=== PATIENT | female | born 1995 | race Caucasian/White ===

== ENCOUNTER 2020-06-12 14:27 | Emergency (ER) | payer OTHER ==
[2020-06-12] MEDS ORDERED: Zofran 4 MG/2 ML VIAL IV ONE (14:49)
[2020-06-12] MEDS ORDERED: Sodium Chloride 0.9% 1000 ML 1,000 ML IV STA (14:49)
[2020-06-12] MEDS ORDERED: TYLENOL 325 MG PO ONE (14:49)
[2020-06-12] MEDS ORDERED: Sodium Chloride 0.9% 1000 ML 1,000 ML ONE (14:54)
[2020-06-12] MEDS ORDERED: TYLENOL 325 MG ONE (14:54)
[2020-06-12] MEDS ORDERED: Zofran 4 MG/2 ML VIAL ONE (14:54)
--- NOTE | 2020-06-12 15:04 | ERPHSYRPT ---
- History of Present Illness Time Seen by Provider: 06/12/20 14:42 Source: patient Exam Limitations: no limitations Patient Subjective Stated Complaint: pt co abd cramping since 1000 this am, she also feels she is dehydrated she staes she has been vomiting this shole pregn che, she is 12 weeks , G7 P 2 Triage Nursing Assessment: pt alert, walked in, resp easy, skin w/d/p, abd soft, no vagfinal bleeding, face mask in place, Physician History: 24 years old 7 para 2 at 12 weeks gestation presented in the ER with sudden onset pelvic cramping around 10 AM today, moderate intensity, continuous, gradually getting better on presentation. Denies any vaginal bleeding or discharge. Patient reports having issues with nausea vomiting since the start of this which did get improved almost a week ago but her vomiting is coming back again and feels dehydrated as she is not able to hold anything down since yesterday. Denies any fever chills or urinary symptoms. Timing/Duration: today, sudden Activites at Onset: rest Quality: cramping Onset Location: pelvic pain Pain Radiation: none Severity of Pain-Max: moderate Severity of Pain-Current: mild Sexual intercourse history: non-contributory Modifying Factors: Improves With: nothing Associated Symptoms: nausea, vomiting, , No urinary frequency Allergies/Adverse Reactions: No Known Drug Allergies Allergy (Unverified 06/18/13 20:11) Home Medications: Levothyroxine Sodium [Levothyroxine] 1 ea DAILY 06/12/20 [History] Hx Tetanus, Diphtheria Vaccination/Date Given: ([place]) Hx Influenza Vaccination/Date Given: No Hx Pneumococcal Vaccination/Date Given: No Travel Risk - International Travel Have you traveled outside of the country in past 3 weeks: No - Coronavirus Screening Are you exhibiting any of the following symptoms?: No Close contact with a COVID-19 positive Pt in past 14-21 Days: No - Vaccine Status Have you recieved a Covid-19 vaccination: No - Review of Systems Constitutional: Fatigue Eyes: No Symptoms Ears, Nose, & Throat: No Symptoms Respiratory: No Symptoms Cardiac: No Symptoms Abdominal/Gastrointestinal: Nausea, Vomiting Genitourinary Symptoms: Musculoskeletal: No Symptoms Skin: No Symptoms Neurological: No Symptoms Psychological: No Symptoms Endocrine: No Symptoms Hematologic/Lymphatic: No Symptoms Immunological/Allergic: No Symptoms - Past Medical History Pertinent Past Medical History: Yes Neurological History: No Pertinent History ENT History: No Pertinent History Cardiac History: No Pertinent History Respiratory History: No Pertinent History Endocrine Medical History: No Pertinent History Musculoskeletal History: No Pertinent History GI Medical History: No Pertinent History History: No Pertinent History Psycho-Social History: No Pertinent History Female Reproductive Disorders: No Pertinent History Other Medical History: cyst left ovary - Past Surgical History Past Surgical History: Yes Neuro Surgical History: No Pertinent History Cardiac: No Pertinent History Respiratory: No Pertinent History Gastrointestinal: No Pertinent History Genitourinary: No Pertinent History Musculoskeletal: Orthopedic Surgery Female Surgical History: No Pertinent History Other Surgical History: right wrist - Social History Smoking Status: Never smoker Exposure to second hand smoke: No Drug Use: none Patient Lives Alone: No - Female History Hx Last Menstrual Period: mar 16 Hx Now: Yes Expected Date of Delivery: 12/27/20 - Nursing Vital Signs Nursing Vital Signs: Initial Vital Signs Temperature 98.3 F 06/12/20 14:32 Pulse Rate 101 H 06/12/20 14:32 Respiratory Rate 18 06/12/20 14:32 Blood Pressure 116/70 06/12/20 14:32 O2 Sat by Pulse Oximetry 100 06/12/20 14:32 Pain Scale Pain Intensity 4 - Physical Exam General Appearance: no apparent distress Eye Exam: eyes nml inspection Ears, Nose, Throat Exam: normal ENT inspection, pharynx normal Neck Exam: normal inspection, supple, full range of motion Respiratory Exam: normal breath sounds, lungs clear Cardiovascular Exam: regular rate/rhythm, normal heart sounds Gastrointestinal/Abdomen Exam: soft, normal bowel sounds, No tenderness, No guarding Back Exam: normal inspection, normal range of motion Extremity Exam: normal inspection, normal range of motion, pelvis stable Neurologic Exam: alert, oriented x 3, cooperative Skin Exam: normal color SpO2 Interpretation: normal SpO2: 100 O2 Delivery: Room Air Ordered Tests: Active Orders 24 hr Category Date Time Status IV Insertion STAT Care 06/12/20 14:42 Active OB <14 WKS 1ST GESTATION [US] Stat Exams 06/12/20 16:11 Ordered CBC W DIFF Stat Lab 06/12/20 15:10 Completed CMP Stat Lab 06/12/20 15:10 Completed UA W/RFX UR CULTURE Stat Lab 06/12/20 16:26 Completed Medication Summary Discontinued Medications Generic Name Dose Route Start Last Admin Trade Name Freq PRN Reason Stop Dose Admin Acetaminophen 975 mg 06/12/20 14:49 06/12/20 14:58 Tylenol 325 Mg PO 06/12/20 14:50 975 mg STAT ONE Administration Acetaminophen Confirm 06/12/20 14:54 Tylenol 325 Mg Administered 06/12/20 14:55 Dose 975 mg .ROUTE .STK-MED ONE Sodium Chloride 1,000 mls @ 999 mls/hr 06/12/20 14:49 06/12/20 15:58 Sodium Chloride 0.9% 1000 Ml IV 06/12/20 15:49 Infused .Q1H1M STA Infusion Sodium Chloride Confirm 06/12/20 14:54 Sodium Chloride 0.9% 1000 Ml Administered 06/12/20 14:55 Dose 1,000 mls @ ud .ROUTE .STK-MED ONE Ceftriaxone Sodium/Dextrose 1 g in 50 mls @ 100 mls/hr 06/12/20 16:41 06/12/20 16:59 Rocephin 1 Gm-D5w 50 Ml Bag IV 06/12/20 17:10 100 mls/hr STAT STA 100 mls/hr Administration Ceftriaxone Sodium/Dextrose Confirm 06/12/20 16:45 Rocephin 1 Gm-D5w 50 Ml Bag Administered 06/12/20 16:46 Dose 1 g in 50 mls @ ud IV .STK-MED ONE Ondansetron HCl 4 mg 06/12/20 14:49 06/12/20 14:58 Zofran 4 Mg/2 Ml Vial IV 06/12/20 14:50 4 mg STAT ONE Administration Ondansetron HCl Confirm 06/12/20 14:54 Zofran 4 Mg/2 Ml Vial Administered 06/12/20 14:55 Dose 4 mg .ROUTE .STK-MED ONE Lab/Rad Data: Laboratory Result Diagrams 06/12/20 15:10 06/12/20 15:10 Laboratory Results 06/12/20 06/12/20 06/12/20 Range/Units 16:26 15:10 15:10 WBC (4.0-10.5) K/mm3 RBC (4.1-5.4) M/mm3 Hgb (12.0-16.0) gm/dl Hct (35-47) % MCV (78-100) fl MCH (26-32) pg MCHC (32-36) g/dl RDW (11.5-14.0) % Plt Count (150-450) K/mm3 MPV (7.5-11.0) fl Gran % (36.0-66.0) % Eos # (Auto) (0-0.5) Absolute Lymphs (auto) (1.0-4.6) Absolute Monos (auto) (0.0-1.3) Lymphocytes % (24.0-44.0) % Monocytes % (0.0-12.0) % Eosinophils % (0.00-5.0) % Basophils % (0.0-0.4) % Absolute Granulocytes (1.4-6.9) Basophils # (0-0.4) Sodium 135 L (137-145) mmol/L Potassium 3.9 (3.5-5.1) mmol/L Chloride 102 (98-107) mmol/L Carbon Dioxide 23 (22-30) mmol/L Anion Gap 14.1 (5-15) MEQ/L BUN 8 (7-17) mg/dL Creatinine 0.71 (0.52-1.04) mg/dL Estimated GFR > 60.0 ML/MIN Glucose 87 (74-106) mg/dL Calcium 8.4 (8.4-10.2) mg/dL Total Bilirubin 0.40 (0.2-1.3) mg/dL AST 25 (14-36) U/L ALT 16 (0-35) U/L Alkaline Phosphatase 67 (38-126) U/L Serum Total Protein 7.3 (6.3-8.2) g/dL Albumin 4.2 (3.5-5.0) g/dL Urine Color YELLOW (YELLOW) Urine Appearance SLIGHTLY CLOUDY (CLEAR) Urine pH 6.0 (5-6) Ur Specific Max 1.032 (1.005-1.025) Urine Protein 30 (Negative) Urine Ketones MODERATE (NEGATIVE) Urine Blood NEGATIVE (0-5) Lyndon/ul Urine Nitrite NEGATIVE (NEGATIVE) Urine Bilirubin NEGATIVE (NEGATIVE) Urine Urobilinogen 2 (0-1) mg/dL Ur Leukocyte Esterase NEGATIVE (NEGATIVE) Urine WBC (Auto) NONE (0-5) /HPF Urine RBC (Auto) NONE (0-2) /HPF U Epithel Cells (Auto) NONE (FEW) /HPF Urine Bacteria (Auto) NONE (NEGATIVE) /HPF Urine Mucus (Auto) SLIGHT (NEGATIVE) /HPF Urine Culture Reflexed NO (NO) Urine Glucose NEGATIVE (NEGATIVE) mg/dL Slides for Path Review ABO Group O Rh Factor POSITIVE Antibody Screen NEGATIVE (NEGATIVE) 06/12/20 Range/Units 15:10 WBC 7.3 (4.0-10.5) K/mm3 RBC 4.59 (4.1-5.4) M/mm3 Hgb 13.9 (12.0-16.0) gm/dl Hct 42.3 (35-47) % MCV 92.2 (78-100) fl MCH 30.3 (26-32) pg MCHC 32.9 (32-36) g/dl RDW 13.1 (11.5-14.0) % Plt Count 224 (150-450) K/mm3 MPV 11.0 (7.5-11.0) fl Gran % 86.8 H (36.0-66.0) % Eos # (Auto) 0.06 (0-0.5) Absolute Lymphs (auto) 0.35 L (1.0-4.6) Absolute Monos (auto) 0.55 (0.0-1.3) Lymphocytes % 4.8 L (24.0-44.0) % Monocytes % 7.5 (0.0-12.0) % Eosinophils % 0.8 (0.00-5.0) % Basophils % 0.1 (0.0-0.4) % Absolute Granulocytes 6.32 (1.4-6.9) Basophils # 0.01 (0-0.4) Sodium (137-145) mmol/L Potassium (3.5-5.1) mmol/L Chloride (98-107) mmol/L Carbon Dioxide (22-30) mmol/L Anion Gap (5-15) MEQ/L BUN (7-17) mg/dL Creatinine (0.52-1.04) mg/dL Estimated GFR ML/MIN Glucose (74-106) mg/dL Calcium (8.4-10.2) mg/dL Total Bilirubin (0.2-1.3) mg/dL AST (14-36) U/L ALT (0-35) U/L Alkaline Phosphatase (38-126) U/L Serum Total Protein (6.3-8.2) g/dL Albumin (3.5-5.0) g/dL Urine Color (YELLOW) Urine Appearance (CLEAR) Urine pH (5-6) Ur Specific Max (1.005-1.025) Urine Protein (Negative) Urine Ketones (NEGATIVE) Urine Blood (0-5) Lyndon/ul Urine Nitrite (NEGATIVE) Urine Bilirubin (NEGATIVE) Urine Urobilinogen (0-1) mg/dL Ur Leukocyte Esterase (NEGATIVE) Urine WBC (Auto) (0-5) /HPF Urine RBC (Auto) (0-2) /HPF U Epithel Cells (Auto) (FEW) /HPF Urine Bacteria (Auto) (NEGATIVE) /HPF Urine Mucus (Auto) (NEGATIVE) /HPF Urine Culture Reflexed (NO) Urine Glucose (NEGATIVE) mg/dL Slides for Path Review YES ABO Group Rh Factor Antibody Screen (NEGATIVE) - Progress Progress: improved Air Movement: good Progress Note: 06/12/20 15:03 24 years old is evaluated for pelvic cramping and vomiting feeling dehydrated. She is given fluid bolus and Zofran along with Tylenol. Discussed with Dr. Zaidi, recommended hydration with symptomatic treatment and baseline lab work. 06/12/20 17:38 She is feeling better on reevaluation. Baseline work-up is unremarkable. Per OB recommendation given a dose of Rocephin. Ultrasound showed heart tones in 170s and no other acute findings per preliminary report. Official report is pending. Patient would follow-up with OB tomorrow. I think patient needs any further work-up and is stable for discharge. Blood Culture(s) Obtained: No Antibiotics given: No Discussed with DrToñito: Demetria Counseled pt/family regarding: lab results, diagnosis, need for follow-up, rad results - Departure Departure Disposition: Home Clinical Impression: Pelvic cramping in antepartum period Condition: Stable Critical Care Time: No Referrals: MASTER PANTOJA, CESAR [Primary Care Provider] - CONCHITA ZAIDI DO [ACTIVE STAFF] - (tomorrow for re evaluation) Instructions: Stomach Pain in Early Additional Instructions: take tylenol as needed. drink plenty of fluids. follow up with ELEANOR for re evaluation tomorrow. return to ER for worsening cramping or if develop vaginal bleeding etc. pelvic rest
[2020-06-12 15:20] LABS: Absolute Neutrophil Ct (ANC) 6.32 (1.4-6.9); BASOPHIL % 0.1 % (0.0-0.4); Basophil (Absolute #) 0.01 (0-0.4); Eosinophil % 0.8 % (0.00-5.0); Eosinophil (Absolute #) 0.06 (0-0.5); Hematocrit 42.3 % (35-47); Hemoglobin 13.9 gm/dl (12.0-16.0); Lymphocyte (Absolute #) 0.35 (1.0-4.6); Lymphocytes % 4.8 % (24.0-44.0); Mean Cell Volume 92.2 fl (78-100); Mean Corpuscular Hemoglobin 30.3 pg (26-32); Mean Corpuscular Hgb Concent. 32.9 g/dl (32-36); Monocyte (Absolute #) 0.55 (0.0-1.3); Monocytes % 7.5 % (0.0-12.0); Neutrophil % 86.8 % (36.0-66.0); Platelet Count 224 K/mm3 (150-450); Red Blood Count 4.59 M/mm3 (4.1-5.4); Red Cell Distribution Width 13.1 % (11.5-14.0); White Blood Count 7.3 K/mm3 (4.0-10.5)
[2020-06-12 15:30] LABS: ALBUMIN 4.2 g/dL (3.5-5.0); ALKALINE PHOSPHATASE 67 U/L (38-126); ANION GAP 14.1 MEQ/L (5-15); BLOOD UREA NITROGEN 8 mg/dL (7-17); CHLORIDE 102 mmol/L (98-107); Calcium 8.4 mg/dL (8.4-10.2); Carbon Dioxide 23 mmol/L (22-30); Creatinine 1 0.71 mg/dL (0.52-1.04); EST GLOMERULAR FILTRATION RATE > 60.0 ML/MIN; Glucose 87 mg/dL (74-106); Potassium 3.9 mmol/L (3.5-5.1); SGOT/AST 25 U/L (14-36); SGPT/ALT 16 U/L (0-35); SODIUM 135 mmol/L (137-145); Total Protein 7.3 g/dL (6.3-8.2)
[2020-06-12 15:58] LABS: ABO TYPING O; Antibody Screen NEGATIVE (NEGATIVE); RH TYPING POSITIVE
[2020-06-12 16:04] LABS: Slide Review 1 YES
[2020-06-12 16:33] LABS: Appearance SLIGHTLY CLOUDY (CLEAR); Bilirubin NEGATIVE (NEGATIVE); Blood NEGATIVE Ery/ul (0-5); Glucose NEGATIVE (NEGATIVE); Ketones MODERATE (NEGATIVE); Leukocyte Esterase NEGATIVE (NEGATIVE); Mucus SLIGHT /HPF (NEGATIVE); Nitrite NEGATIVE (NEGATIVE); Protein,Urine Dip 30 (Negative); Specific Gravity 1.032 (1.005-1.025); Urobilinogen 2 mg/dL (0-1)
[2020-06-12] MEDS ORDERED: ROCEPHIN 1 Gm-D5w 50 ml Bag** 1 G/50 ML IVPB IV STA (16:41)
[2020-06-12] MEDS ORDERED: ROCEPHIN 1 Gm-D5w 50 ml Bag** 1 G/50 ML IVPB IV ONE (16:45)
[2020-06-12 17:36] VITALS: BP 102/62; PULSE 92
[2020-06-12 17:40] VITALS: O2SAT 100
--- NOTE | 2020-06-13 08:44 | XRAY ---
Indication: Pelvic cramping. Limited transabdominal early OB ultrasound performed. Comparison: None for this . There is a single intrauterine with heart rate 171 BPM and no abnormal subchorionic fluid. Left ovary measures 1.9 x 3.3 x 2.5 cm. Right ovary not seen. No suspicious adnexal mass or free fluid. Comment: Preliminary report was given.
== END 2020-06-12 17:39 | disposition home or self-care (01) ==
LOC: ED 14:27
DX: R10.2 Pelvic and perineal pain (principal); Z3A.12 12 weeks gestation of pregnancy; R11.2 Nausea with vomiting, unspecified
CPT/HCPCS: 36000; 36415; 76801; 80053; 81001; 85025; 86850; 86900; 86901; 96360; 96365; 96374; 99284; J0696; J2405; A9270-GY

== ENCOUNTER 2020-12-30 13:23 | Emergency (ER) | payer BC, OTHER ==
[2020-12-30] MEDS ORDERED: SUBLIMAZE 100 MCG/2 ML IV ONE (13:35)
[2020-12-30] MEDS ORDERED: Zofran 4 MG/2 ML VIAL IV ONE (13:36)
[2020-12-30] MEDS ORDERED: Zofran 4 MG/2 ML VIAL ONE (13:44)
[2020-12-30] MEDS ORDERED: SUBLIMAZE 100 MCG/2 ML ONE (13:44)
[2020-12-30 14:04] LABS: Absolute Neutrophil Ct (ANC) 4.18 (1.4-6.9); BASOPHIL % 0.7 % (0.0-0.4); Basophil (Absolute #) 0.05 (0-0.4); Eosinophil % 1.6 % (0.00-5.0); Eosinophil (Absolute #) 0.11 (0-0.5); Hematocrit 41.2 % (35-47); Hemoglobin 12.4 gm/dl (12.0-16.0); Lymphocyte (Absolute #) 1.79 (1.0-4.6); Lymphocytes % 25.6 % (24.0-44.0); Mean Cell Volume 87.5 fl (78-100); Mean Corpuscular Hemoglobin 26.3 pg (26-32); Mean Corpuscular Hgb Concent. 30.1 g/dl (32-36); Mean Platelet Volume 10.5 fl (7.5-11.0); Monocyte (Absolute #) 0.85 (0.0-1.3); Monocytes % 12.2 % (0.0-12.0); Neutrophil % 59.9 % (36.0-66.0); Platelet Count 406 K/mm3 (150-450); Red Blood Count 4.71 M/mm3 (4.1-5.4); Red Cell Distribution Width 15.1 % (11.5-14.0)
--- NOTE | 2020-12-30 14:04 | ERPHSYRPT ---
- History of Present Illness Historian: patient, EMS Exam Limitations: no limitations Patient Subjective Stated Complaint: pt here for pain under left breast and up neck since last night with some sob, pt had covid and pnuemonia, she is post 3 weeks, normal vaginal delivery, breast feeding Triage Nursing Assessment: pt alert, resp easy, sob with movement, skin w/d/p. face mask in place, abd soft, no edema noted Physician History: 25 yo wf s/p term vag delivery 3 wks ago complicated by Covid19 presents w L anterior-inferior chest pain x 12hrs. Pt states that pain is a 10 and worse w deep breaths. She denies nausea/vomiting/cough/fever. Pt is currently breast feeding and denies injury. Timing/Duration: yesterday (Last night) Activities at Onset: rest Quality: sharpness Location: other (L anterior-inferior thorax) Chest Pain Radiation: back (Pain radiates to back) Severity of Pain-Max: severe Severity of Pain-Current: severe Modifying Factors: Improves With: breathing, coughing Associated Symptoms: hurts to breathe, back pain, No nausea, No vomiting, No palpitations, No heartburn, No abdominal pain, No shortness of breath, No cough, No diaphoresis, No chills, No fever, No fatigue, No weakness, No swelling/lump in chest, No syncope, No rash, No headache, No dizziness, No edema Prior Chest Pain/Cardiac Workup: no prior chest pain Nitro Today/Relief: no nitro taken today Aspirin Treatment Today: no aspirin today Allergies/Adverse Reactions: No Known Drug Allergies Allergy (Unverified 12/30/20 14:18) Home Medications: Levothyroxine Sodium [Levothyroxine] 1 ea DAILY 06/12/20 [History] Vits W-Ca,Fe,FA(<1Mg) [] 1 ea DAILY 12/30/20 [History] Hx Influenza Vaccination/Date Given: No Hx Pneumococcal Vaccination/Date Given: No Immunizations Up to Date: Yes Travel Risk - International Travel Have you traveled outside of the country in past 3 weeks: No - Coronavirus Screening Are you exhibiting any of the following symptoms?: No Close contact with a COVID-19 positive Pt in past 14-21 Days: No - Vaccine Status Have you recieved a Covid-19 vaccination: No - Review of Systems Constitutional: No Symptoms Eyes: No Symptoms Ears, Nose, & Throat: No Symptoms Respiratory: No Symptoms Cardiac: No Symptoms, Chest Pain Abdominal/Gastrointestinal: No Symptoms Genitourinary Symptoms: No Symptoms Musculoskeletal: No Symptoms Skin: No Symptoms Neurological: No Symptoms Psychological: No Symptoms Endocrine: No Symptoms Hematologic/Lymphatic: No Symptoms Immunological/Allergic: No Symptoms - Past Medical History Pertinent Past Medical History: Yes Respiratory History: Asthma Other Medical History: covid 3 end nov 2020,vaginal delivery nov 2020 - Past Surgical History Past Surgical History: No - Social History Smoking Status: Never smoker Exposure to second hand smoke: No Drug Use: none Patient Lives Alone: No Significant Family History: no pertinent family hx - Female History Hx Last Menstrual Period: apr 2020 Hx Now: No - Nursing Vital Signs Nursing Vital Signs: Initial Vital Signs Temperature 97.2 F 12/30/20 13:31 Pulse Rate 88 12/30/20 13:31 Blood Pressure 130/82 12/30/20 13:31 O2 Sat by Pulse Oximetry 99 12/30/20 13:31 Pain Scale Pain Intensity 3 WNL - Physical Exam General Appearance: no apparent distress (In pain) Eye Exam: PERRL/EOMI, eyes nml inspection Ears, Nose, Throat Exam: normal ENT inspection, TMs normal, pharynx normal, moist mucous membranes Neck Exam: normal inspection, non-tender, supple, full range of motion Respiratory Exam: normal breath sounds, lungs clear, airway intact, No chest tenderness, No respiratory distress Cardiovascular Exam: regular rate/rhythm, normal heart sounds, normal peripheral pulses, No murmur Gastrointestinal/Abdomen Exam: soft, normal bowel sounds, No tenderness Back Exam: normal inspection, normal range of motion, No CVA tenderness Extremity Exam: normal inspection, normal range of motion Neurologic Exam: alert, oriented x 3, cooperative, automotive technology instructor II-XII nml as tested, normal mood/affect, nml station & gait, sensation nml, No motor deficits, No sensory deficit Skin Exam: normal color, warm, dry Lymphatic Exam: No adenopathy SpO2 Interpretation: normal SpO2: 99 O2 Delivery: Room Air - Course Nursing assessment & vital signs reviewed: Yes - CT Exams Chest CT Interpretation: Discussed w/radiologist (CT chest no PE/Diffuse groundglass airspace dz) Abdomen/Pelvis CT Interpretation: Discussed w/radiologist (Nothing acute) Ordered Tests: Active Orders 24 hr Category Date Time Status EKG-ER Only STAT Care 12/30/20 14:13 Completed IV Insertion STAT Care 12/30/20 13:32 Completed ABDOMEN AND PELVIS W CONTRAST [CT] Stat Exams 12/30/20 14:37 Completed CHEST WITH CONTRAST [CT] Stat Exams 12/30/20 14:37 Completed AMYLASE Stat Lab 12/30/20 13:50 Completed CBC W DIFF Stat Lab 12/30/20 13:50 Completed CMP Stat Lab 12/30/20 13:50 Completed CULTURE,URINE Stat Lab 12/30/20 13:43 Received LIPASE Stat Lab 12/30/20 13:50 Completed PROTIME WITH INR Stat Lab 12/30/20 13:50 Completed PTT Stat Lab 12/30/20 13:50 Completed TROPONIN Q3H Lab 12/30/20 13:50 Completed UA W/RFX UR CULTURE Stat Lab 12/30/20 13:43 Completed Urine Triage Profile Stat Lab 12/30/20 13:43 Completed Medication Summary Discontinued Medications Generic Name Dose Route Start Last Admin Trade Name Asa PRN Reason Stop Dose Admin Fentanyl Citrate 100 mcg 12/30/20 13:35 12/30/20 13:47 Fentanyl Citrate 100 Mcg/2 Ml* Vial IV 12/30/20 13:36 100 mcg STAT ONE Administration Fentanyl Citrate Confirm 12/30/20 13:44 Fentanyl Citrate 100 Mcg/2 Ml* Vial Administered 12/30/20 13:45 Dose 100 mcg .ROUTE .STK-MED ONE Ondansetron HCl 4 mg 12/30/20 13:36 12/30/20 13:47 Ondansetron Hcl 4 Mg/2 Ml Vial IV 12/30/20 13:37 4 mg STAT ONE Administration Ondansetron HCl Confirm 12/30/20 13:44 Ondansetron Hcl 4 Mg/2 Ml Vial Administered 12/30/20 13:45 Dose 4 mg .ROUTE .STK-MED ONE Lab/Rad Data: Laboratory Result Diagrams 12/30/20 13:50 12/30/20 13:50 Laboratory Results 12/30/20 12/30/20 12/30/20 Range/Units 13:50 13:50 13:50 WBC (4.0-10.5) K/mm3 RBC (4.1-5.4) M/mm3 Hgb (12.0-16.0) gm/dl Hct (35-47) % MCV (78-100) fl MCH (26-32) pg MCHC (32-36) g/dl RDW (11.5-14.0) % Plt Count (150-450) K/mm3 MPV (7.5-11.0) fl Gran % (36.0-66.0) % Eos # (Auto) (0-0.5) Absolute Lymphs (auto) (1.0-4.6) Absolute Monos (auto) (0.0-1.3) Lymphocytes % (24.0-44.0) % Monocytes % (0.0-12.0) % Eosinophils % (0.00-5.0) % Basophils % (0.0-0.4) % Absolute Granulocytes (1.4-6.9) Basophils # (0-0.4) PT 12.6 H (9.4-12.5) SECONDS INR 1.07 (0.8-3.0) APTT 39.0 H (25.1-36.5) SECONDS Sodium 141 (137-145) mmol/L Potassium 4.4 (3.5-5.1) mmol/L Chloride 108 H (98-107) mmol/L Carbon Dioxide 23 (22-30) mmol/L Anion Gap 14.5 (5-15) MEQ/L BUN 10 (7-17) mg/dL Creatinine 0.86 (0.52-1.04) mg/dL Estimated GFR > 60.0 ML/MIN Glucose 93 (74-106) mg/dL Calcium 8.7 (8.4-10.2) mg/dL Total Bilirubin 0.50 (0.2-1.3) mg/dL AST 22 (14-36) U/L ALT 21 (0-35) U/L Alkaline Phosphatase 151 H (38-126) U/L Troponin I < 0.012 (0.000-0.034) ng/mL Serum Total Protein 6.8 (6.3-8.2) g/dL Albumin 4.2 (3.5-5.0) g/dL Amylase 49 (30-110) U/L Lipase 114 (23-300) U/L Urine Color (YELLOW) Urine Appearance (CLEAR) Urine pH (5-6) Ur Specific [place] (1.005-1.025) Urine Protein (Negative) Urine Ketones (NEGATIVE) Urine Blood (0-5) Lyndon/ul Urine Nitrite (NEGATIVE) Urine Bilirubin (NEGATIVE) Urine Urobilinogen (0-1) mg/dL Ur Leukocyte Esterase (NEGATIVE) Urine WBC (Auto) (0-5) /HPF Urine RBC (Auto) (0-2) /HPF U Epithel Cells (Auto) (FEW) /HPF Urine Bacteria (Auto) (NEGATIVE) /HPF Urine Mucus (Auto) (NEGATIVE) /HPF Urine Culture Reflexed (NO) Urine Glucose (NEGATIVE) mg/dL Urine Opiates Level (NEGATIVE) Ur Methadone (NEGATIVE) Urine Barbiturates (NEGATIVE) Ur Phencyclidine (PCP) (NEGATIVE) Urine Amphetamine (NEGATIVE) U Benzodiazepine Level (NEGATIVE) Urine Cocaine (NEGATIVE) Urine Marijuana (THC) (NEGATIVE) 12/30/20 12/30/20 12/30/20 Range/Units 13:50 13:43 13:43 WBC 7.0 (4.0-10.5) K/mm3 RBC 4.71 (4.1-5.4) M/mm3 Hgb 12.4 (12.0-16.0) gm/dl Hct 41.2 (35-47) % MCV 87.5 (78-100) fl MCH 26.3 (26-32) pg MCHC 30.1 L (32-36) g/dl RDW 15.1 H (11.5-14.0) % Plt Count 406 (150-450) K/mm3 MPV 10.5 (7.5-11.0) fl Gran % 59.9 (36.0-66.0) % Eos # (Auto) 0.11 (0-0.5) Absolute Lymphs (auto) 1.79 (1.0-4.6) Absolute Monos (auto) 0.85 (0.0-1.3) Lymphocytes % 25.6 (24.0-44.0) % Monocytes % 12.2 H (0.0-12.0) % Eosinophils % 1.6 (0.00-5.0) % Basophils % 0.7 (0.0-0.4) % Absolute Granulocytes 4.18 (1.4-6.9) Basophils # 0.05 (0-0.4) PT (9.4-12.5) SECONDS INR (0.8-3.0) APTT (25.1-36.5) SECONDS Sodium (137-145) mmol/L Potassium (3.5-5.1) mmol/L Chloride (98-107) mmol/L Carbon Dioxide (22-30) mmol/L Anion Gap (5-15) MEQ/L BUN (7-17) mg/dL Creatinine (0.52-1.04) mg/dL Estimated GFR ML/MIN Glucose (74-106) mg/dL Calcium (8.4-10.2) mg/dL Total Bilirubin (0.2-1.3) mg/dL AST (14-36) U/L ALT (0-35) U/L Alkaline Phosphatase (38-126) U/L Troponin I (0.000-0.034) ng/mL Serum Total Protein (6.3-8.2) g/dL Albumin (3.5-5.0) g/dL Amylase (30-110) U/L Lipase (23-300) U/L Urine Color YELLOW (YELLOW) Urine Appearance SLIGHTLY CLOUDY (CLEAR) Urine pH 6.0 (5-6) Ur Specific [place] 1.027 (1.005-1.025) Urine Protein NEGATIVE (Negative) Urine Ketones NEGATIVE (NEGATIVE) Urine Blood NEGATIVE (0-5) Lyndon/ul Urine Nitrite NEGATIVE (NEGATIVE) Urine Bilirubin NEGATIVE (NEGATIVE) Urine Urobilinogen NEGATIVE (0-1) mg/dL Ur Leukocyte Esterase MODERATE (NEGATIVE) Urine WBC (Auto) 6-10 (0-5) /HPF Urine RBC (Auto) 0-2 (0-2) /HPF U Epithel Cells (Auto) RARE (FEW) /HPF Urine Bacteria (Auto) FEW (NEGATIVE) /HPF Urine Mucus (Auto) SLIGHT (NEGATIVE) /HPF Urine Culture Reflexed YES (NO) Urine Glucose NEGATIVE (NEGATIVE) mg/dL Urine Opiates Level NEGATIVE (NEGATIVE) Ur Methadone NEGATIVE (NEGATIVE) Urine Barbiturates NEGATIVE (NEGATIVE) Ur Phencyclidine (PCP) NEGATIVE (NEGATIVE) Urine Amphetamine NEGATIVE (NEGATIVE) U Benzodiazepine Level NEGATIVE (NEGATIVE) Urine Cocaine NEGATIVE (NEGATIVE) Urine Marijuana (THC) NEGATIVE (NEGATIVE) - Progress Progress: improved Progress Note: 12/30/20 21:09 [id number] IV/4mg IV Zofran w marked relief in pain Pt refused pain meds before discharge Counseled pt/family regarding: lab results, diagnosis, need for follow-up, rad results - Departure Departure Disposition: Home Clinical Impression: UTI (urinary tract infection), Chest pain Condition: Stable Critical Care Time: No Referrals: MASTER PANTOJA NP [Primary Care Provider] - Instructions: Urinary Tract Infection, Adult (DC), Chest Pain (DC) Additional Instructions: Follow up with your family MD Return to ER for increasing pain, shortness of breath, or temperature greater than 100.5 Prescriptions: Nitrofurantoin Monohyd/M-Cryst [Macrobid 100 mg Capsule] 100 mg PO BID 5 Days #10
[2020-12-30 14:08] LABS: INR 1.07 (0.8-3.0); PROTIME 12.6 SECONDS (9.4-12.5)
[2020-12-30 14:12] LABS: Appearance SLIGHTLY CLOUDY (CLEAR); Bacteria FEW /HPF (NEGATIVE); Bilirubin NEGATIVE (NEGATIVE); Blood NEGATIVE Ery/ul (0-5); Epithelial Cells RARE /HPF (FEW); Glucose NEGATIVE (NEGATIVE); Ketones NEGATIVE (NEGATIVE); Leukocyte Esterase MODERATE (NEGATIVE); Mucus SLIGHT /HPF (NEGATIVE); Nitrite NEGATIVE (NEGATIVE); Protein,Urine Dip NEGATIVE (Negative); RBC 0-2 /HPF (0-2); Specific Gravity 1.027 (1.005-1.025); Urobilinogen NEGATIVE mg/dL (0-1)
[2020-12-30 14:16] LABS: ALBUMIN 4.2 g/dL (3.5-5.0); ALKALINE PHOSPHATASE 151 U/L (38-126); AMYLASE 49 U/L (30-110); ANION GAP 14.5 MEQ/L (5-15); BLOOD UREA NITROGEN 10 mg/dL (7-17); CHLORIDE 108 mmol/L (98-107); Calcium 8.7 mg/dL (8.4-10.2); Carbon Dioxide 23 mmol/L (22-30); Creatinine 1 0.86 mg/dL (0.52-1.04); EST GLOMERULAR FILTRATION RATE > 60.0 ML/MIN; Glucose 93 mg/dL (74-106); LIPASE 114 U/L (23-300); Potassium 4.4 mmol/L (3.5-5.1); SGOT/AST 22 U/L (14-36); SGPT/ALT 21 U/L (0-35); SODIUM 141 mmol/L (137-145); Total Protein 6.8 g/dL (6.3-8.2)
[2020-12-30 14:27] LABS: Amphetamine,Urine NEGATIVE (NEGATIVE); Barbiturate,Urine NEGATIVE (NEGATIVE); Benzodiazepine,Urine NEGATIVE (NEGATIVE); Cocaine,Urine NEGATIVE (NEGATIVE); Methadone,Urine NEGATIVE (NEGATIVE); Opiate,Urine NEGATIVE (NEGATIVE); PCP,Urine NEGATIVE (NEGATIVE); THC,Urine NEGATIVE (NEGATIVE)
--- NOTE | 2020-12-30 15:43 | XRAY ---
Indication: Left chest, left breast, left flank pain. Status post 3 weeks ago. Multiple contiguous images obtained through the chest using 100 cc Isovue 370 contrast and PE protocol. Comparison: None There is adequate opacification of the pulmonary arteries to include the lobar and segmental branches. No pulmonary embolus. Heart not enlarged. Aorta is normal in course and caliber. No pathologic mediastinal/hilar lymphadenopathy. Lungs demonstrates mild diffuse bilateral patchy groundglass airspace disease without consolidation or effusion. Bony thorax intact. CT abdomen/pelvis report septally. Impression: 1. Negative pulmonary embolus. 2. Diffuse bilateral patchy groundglass airspace disease. Commonly reported imaging features of Covid 19 pneumonia are present. Other processes such as influenza pneumonia and organizing pneumonia, as can be seen with drug toxicity and connective tissue disease, can cause a similar imaging pattern.
--- NOTE | 2020-12-30 15:47 | XRAY ---
Indication: Left chest, left breast, left flank pain. Status post 3 weeks ago. Multiple contiguous images obtained through the abdomen and pelvis using 100 cc Isovue 370 contrast. Comparison: None CT chest reported separately. Noncontrasted stomach and bowel loops appear nonobstructed. Appendix not seen. Mildly prominent uterus presumed from recent gravid status. No free fluid/air. Liver demonstrates 1.8 cm left lobe and 1 cm right lobe hemangiomas. Remaining liver, gallbladder, pancreas, spleen, adrenal glands, kidneys, ureters, bladder, uterus, and aorta are unremarkable. No pathologic retroperitoneal lymphadenopathy. Osseous structures intact. No ventral or inguinal hernias. Impression: 1. Hepatic hemangiomas. 2. Prominent uterus presumed from recent gravid status. 3. Remaining CT abdomen/pelvis with contrast exam is negative.
[2020-12-30 16:03] VITALS: BP 119/77; PULSE 80
[2020-12-30 16:05] VITALS: O2SAT 99
== END 2020-12-30 16:12 | disposition home or self-care (01) ==
LOC: MERGE 13:23 → ED 13:23
DX: O86.20 Urinary tract infection following delivery, unspecified (principal); N39.0 Urinary tract infection, site not specified; R07.9 Chest pain, unspecified
CPT/HCPCS: 36000; 36415; 71260; 74177; 80053; 80307; 81001; 82150; 83690; 84484; 85025; 85610; 85730; 87086; 93005; 96374; 96375; 99284; J2405; J3010

== ENCOUNTER 2021-12-19 07:59 | Day surgery (SDC) | payer BC, OTHER ==
[~2021-12-19 07:59] MED LIST: Lactated Ringers 1,000 ML IV ONE; Sensorcaine 0.25% 10 ML ONE
[2021-12-19] MEDS ORDERED: CEFAZOLIN 2 GM-D5W BAG** 2 GM/50 ML ML IV ONE (08:20)
[2021-12-19] MEDS ORDERED: CEFAZOLIN 2 GM-D5W BAG** 2 GM/50 ML ML IV SCH (08:30)
[2021-12-19] MEDS: Lactated Ringers 1,000 ML IV SCH ×2 (08:59→20:50)
[2021-12-19] MEDS ORDERED: BRIDION 200MG/2ML IV ONE (09:53)
[2021-12-19] MEDS ORDERED: DIPRIVAN 200 MG/20 ML IV ONE (09:53)
[2021-12-19] MEDS ORDERED: Zofran 4 MG/2 ML VIAL ONE (09:53)
[2021-12-19] MEDS ORDERED: Decadron 4 MG INJ ONE (09:53)
[2021-12-19] MEDS ORDERED: Xylocaine-Mpf 2% 5 Ml Vial ONE (09:53)
[2021-12-19] MEDS ORDERED: Zemuron 100 MG/10 ML ONE (09:53)
[2021-12-19] MEDS ORDERED: SUBLIMAZE 100 MCG/2 ML ONE ×2 (09:53→11:47)
[2021-12-19] MEDS ORDERED: TORAdol 30 mg Injection ONE ×2 (09:53→18:58)
[2021-12-19] MEDS ORDERED: Versed 2 MG/2 ML Injection ONE (10:19)
[2021-12-19] MEDS ORDERED: Lactated Ringers 1,000 ML IV ONE ×2 (11:00→13:45)
[2021-12-19] MEDS ORDERED: PHENYLEPHRINE HCL ONE (11:22)
[2021-12-19] MEDS ORDERED: MORPHINE SULFATE 2 MG INJ ONE (11:31)
[2021-12-19] MEDS ORDERED: Hydromorphone 1 mg/ml Injection ONE ×3 (12:13→14:45)
--- NOTE | 2021-12-19 13:36 | XRAY ---
Indication: Pain following surgery December 19, 2021. Two-dimensional transvaginal pelvic sonogram performed. Comparison: November 20, 2019 Uterus again anteverted measuring 6.5 x 3.1 x 4.3 cm. No focal solid/cystic uterine mass. Endometrial stripe measures 5.6 mm. No endometrial cavity mass or fluid collection. Right ovary measures 3.6 x 2.5 x 3.6 cm and the left measures 3.5 x 2.9 x 3.6 cm. Normal follicular cysts and perfusion bilaterally. Again tiny cul-de-sac fluid presumed physiologic from rupture/leaking cyst. No suspicious adnexal mass. Impression: Again tiny physiologic cul-de-sac fluid. Remaining transvaginal pelvic sonogram is again negative.
[2021-12-19 13:38] LABS: Absolute Neutrophil Ct (ANC) 11.66 x10^3/uL (1.4-6.9); Basophil (Absolute #) 0.05 x10^3/uL (0-0.4); Eosinophil % 0.4 % (0.00-5.0); Eosinophil (Absolute #) 0.05 x10^3/uL (0-0.5); Hematocrit 42.4 % (35-47); Hemoglobin 13.6 g/dL (12.0-16.0); Lymphocyte (Absolute #) 1.35 x10^3/uL (1.0-4.6); Lymphocytes % 10.1 % (24.0-44.0); Mean Cell Volume 90.8 fL (78-100); Mean Corpuscular Hemoglobin 29.1 pg (26-32); Mean Corpuscular Hgb Concent. 32.1 g/dL (32-36); Mean Platelet Volume 10.4 fL (7.5-11.0); Monocyte (Absolute #) 0.17 x10^3/uL (0.0-1.3); Monocytes % 1.3 % (0.0-12.0); Neutrophil % 87.4 % (36.0-66.0); Platelet Count 276 x10^3/uL (150-450); Red Blood Count 4.67 x10^6/uL (4.1-5.4); Red Cell Distribution Width 12.4 % (11.5-14.0); White Blood Count 13.3 x10^3/uL (4.0-10.5)
[2021-12-19] MEDS ORDERED: OFIRMEV IV ONE (14:02)
[2021-12-19] MEDS ORDERED: HYDROMORPHONE 30 MG/30 ML-NS IV PRN (14:08)
[2021-12-19] MEDS ORDERED: PHARMACY DOSING REQUEST MC ONE (14:15)
[2021-12-19] MEDS ORDERED: Narcan 0.4 MG/ML IV PRN (14:21)
[2021-12-19] MEDS ORDERED: Hydromorphone 1 mg/ml Injection IV ONE (14:45)
[2021-12-19] MEDS ORDERED: BENADRYL 50 MG/ML IV ONE (17:30)
[2021-12-19] MEDS ORDERED: Zofran 4 MG/2 ML VIAL IV PRN (17:30)
[2021-12-19] MEDS ORDERED: solu-MEDROL 40 MG, Sterile H2O 10 ml 1 ML IV STA ×2 (17:30)
[2021-12-19] MEDS ORDERED: TORAdol 30 mg Injection IV ONE (18:50)
[2021-12-19] MEDS ORDERED: BENADRYL 50 MG/ML IV PRN (19:22)
[2021-12-19 20:39] LABS: ABO TYPING O; Antibody Screen NEGATIVE (NEGATIVE); RH TYPING POSITIVE
[2021-12-19] MEDS: Hydromorphone 1 mg/ml Injection IV PRN (20:45)
[2021-12-20] MEDS: Hydromorphone 1 mg/ml Injection IV PRN ×3 (00:37→08:25)
[2021-12-20 06:46] VITALS: BP 125/71; PULSE 86; O2SAT 98
--- NOTE | 2021-12-20 07:50 | PCM.NOTE ---
Date and Time: 12/20/21 0745 Subjective Assessment: pt is sp laparoscopic tubal sterilization with removal of nexplanon, hysteroscopy d&c with attempted ablation doing much better today since having severe adominal pelvic pain yesterday and was admitted for pain management. pt underwent sonogram and ct abd pelvis and was normal. states tolerating diet and feeling well today, able to ambulate and tolerate diet. vss afebrile abd; soft incision c/d/intact ext; no clubbing cyanosis or edema wbc; 13 a/p sp laparoscopic tubal sterilization hysteroscopy d&c removal of nexplanon with resolving abdominal pelvic pain will dc home today should fu in office in 1 wk OBJECTIVE DATA Vital Signs: Vital Signs - 24 hr Temp Pulse Resp BP Pulse Ox 12/20/21 06:46 97.5 F 86 16 125/71 98 12/20/21 04:00 97.7 F 72 18 102/57 96 12/20/21 00:00 97.7 F 104 H 20 121/71 97 12/19/21 20:00 97.7 F 104 H 20 133/76 97 12/19/21 14:26 16 12/19/21 08:56 97.0 F 60 18 130/89 99 12/19/21 08:34 97.0 F 60 18 130/89 99 Pain Assessment - Last Documented Pain Intensity [Lower] 2 Pain Intensity 4 Pain Scale Used 0-10 Pain Scale Intake and Output: Intake & Output 12/17/21 12/18/21 12/19/21 12/20/21 11:59 11:59 11:59 11:59 Intake Total 0 983 Output Total 200 Balance -200 983 Weight 84.2 kg Lab Results: Lab Results-Last 24 Hours 12/19/21 12/19/21 12/19/21 Range/Units 08:31 13:36 19:30 WBC 13.3 H (4.0-10.5) x10^3/uL RBC 4.67 (4.1-5.4) x10^6/uL Hgb 13.6 (12.0-16.0) g/dL Hct 42.4 (35-47) % MCV 90.8 (78-100) fL MCH 29.1 (26-32) pg MCHC 32.1 (32-36) g/dL RDW 12.4 (11.5-14.0) % Plt Count 276 (150-450) x10^3/uL MPV 10.4 (7.5-11.0) fL Gran % 87.4 H (36.0-66.0) % Immature Gran % (Auto) 0.4 (0.00-0.4) % Nucleat RBC Rel Count 0.0 (0.00-0.1) % Eos # (Auto) 0.05 (0-0.5) x10^3/uL Immature Gran # (Auto) 0.05 H (0.00-0.03) x10^3u/L Absolute Lymphs (auto) 1.35 (1.0-4.6) x10^3/uL Absolute Monos (auto) 0.17 (0.0-1.3) x10^3/uL Absolute Nucleated RBC 0.00 (0.00-0.01) x10^3u/L Lymphocytes % 10.1 L (24.0-44.0) % Monocytes % 1.3 (0.0-12.0) % Eosinophils % 0.4 (0.00-5.0) % Basophils % 0.4 (0.0-0.4) % Absolute Granulocytes 11.66 H (1.4-6.9) x10^3/uL Basophils # 0.05 (0-0.4) x10^3/uL Urine HCG, Qual NEGATIVE (Negative) ABO Group O Rh Factor POSITIVE Antibody Screen NEGATIVE (NEGATIVE) Radiology Exams: Radiology Procedures Category Date Time Status PELVIS TRANS VAGINAL [US] Routine Exams 12/19/21 12:46 Completed Assessment/Plan (1) Postoperative pain Current Visit: Yes Status: Acute Code(s): G89.18 - OTHER ACUTE POSTPROCEDURAL PAIN (2) Status post hysteroscopy Current Visit: Yes Status: Acute Code(s): Z98.890 - OTHER SPECIFIED POSTPROCEDURAL STATES (3) S/P dilation and curettage Current Visit: Yes Status: Acute Code(s): Z98.890 - OTHER SPECIFIED POSTPROCEDURAL STATES (4) Hx of tubal ligation Current Visit: Yes Status: Acute Code(s): Z98.51 - TUBAL LIGATION STATUS (5) Nexplanon removal Current Visit: Yes Status: Acute Code(s): Z30.46 - ENCTR SRVLNC IMPLANTABLE SUBDERMAL CONTRACEPTIVE
--- NOTE | 2021-12-20 07:56 | PCM.DS ---
Discharge Summary Primary Care Provider: MASTER PANTOJA Allergies Allergies shellfish derived Allergy (Intermediate, Verified 12/19/21 08:22) [facility] Summary - Hospital Course Hospital Course: pt underwent laparoscopic tubal sterilization, hysteroscopy d&c with attempted ablation, and nexplanon removal yesterday on dec 19 and underwent procedures without complication however pt was noted having severe abdominal pelvic pain and was admitted for pain management for suspected possible bowel perforation vs uterine perforation. pelvic sonogram done yesterday and was normal and ct abd pelvis with oral and iv contrast done yesterday and was normal with normal postop changes. pt continued receiving pain medication via iv diluadid through the night and benadryl which made her feel much better. today pt feeling much better able to ambulate and tolerate diet with minimal abdominal pelvic discomfort. pt will go home now where rx of norco was sent to her pharmacy and clindamycin for prophylaxis. all questions answered to her satisfaction and was advised to fu in office in 1 wk for postop check. - Vitals & Intake/Output Vital Signs: Vital Signs Temperature 97.5 F 12/20/21 06:46 Pulse Rate 86 12/20/21 06:46 Respiratory Rate 16 12/20/21 06:46 Blood Pressure 125/71 12/20/21 06:46 O2 Sat by Pulse Oximetry 98 12/20/21 06:46 Intake & Output: Intake & Output 12/17/21 12/18/21 12/19/21 12/20/21 11:59 11:59 11:59 11:59 Intake Total 0 983 Output Total 200 Balance -200 983 Weight 84.2 kg - Lab Result Diagrams: 12/19/21 13:36 Lab Results-Last 24 Hrs: Lab Results-Last 24 Hours 12/19/21 12/19/21 12/19/21 Range/Units 08:31 13:36 19:30 WBC 13.3 H (4.0-10.5) x10^3/uL RBC 4.67 (4.1-5.4) x10^6/uL Hgb 13.6 (12.0-16.0) g/dL Hct 42.4 (35-47) % MCV 90.8 (78-100) fL MCH 29.1 (26-32) pg MCHC 32.1 (32-36) g/dL RDW 12.4 (11.5-14.0) % Plt Count 276 (150-450) x10^3/uL MPV 10.4 (7.5-11.0) fL Gran % 87.4 H (36.0-66.0) % Immature Gran % (Auto) 0.4 (0.00-0.4) % Nucleat RBC Rel Count 0.0 (0.00-0.1) % Eos # (Auto) 0.05 (0-0.5) x10^3/uL Immature Gran # (Auto) 0.05 H (0.00-0.03) x10^3u/L Absolute Lymphs (auto) 1.35 (1.0-4.6) x10^3/uL Absolute Monos (auto) 0.17 (0.0-1.3) x10^3/uL Absolute Nucleated RBC 0.00 (0.00-0.01) x10^3u/L Lymphocytes % 10.1 L (24.0-44.0) % Monocytes % 1.3 (0.0-12.0) % Eosinophils % 0.4 (0.00-5.0) % Basophils % 0.4 (0.0-0.4) % Absolute Granulocytes 11.66 H (1.4-6.9) x10^3/uL Basophils # 0.05 (0-0.4) x10^3/uL Urine HCG, Qual NEGATIVE (Negative) ABO Group O Rh Factor POSITIVE Antibody Screen NEGATIVE (NEGATIVE) - Radiology Exams Ordered Rad Exams-Entire Visit: Radiology Procedures Category Date Time Status PELVIS TRANS VAGINAL [US] Routine Exams 12/19/21 12:46 Completed Final Diagnosis/Problem List - Final Discharge Diagnosis/Problem (1) Postoperative pain Current Visit: Yes Status: Acute Code(s): G89.18 - OTHER ACUTE POSTPROCEDURAL PAIN (2) Status post hysteroscopy Current Visit: Yes Status: Acute Code(s): Z98.890 - OTHER SPECIFIED POSTPROCEDURAL STATES (3) S/P dilation and curettage Current Visit: Yes Status: Acute Code(s): Z98.890 - OTHER SPECIFIED POSTPROCEDURAL STATES (4) Hx of tubal ligation Current Visit: Yes Status: Acute Code(s): Z98.51 - TUBAL LIGATION STATUS (5) Nexplanon removal Current Visit: Yes Status: Acute Code(s): Z30.46 - ENCTR SRVLNC IMPLANTABLE SUBDERMAL CONTRACEPTIVE - Discharge Disposition: Home, Self-Care Condition: Stable Prescriptions: New clindamycin HCL [Clindamycin HCl] 300 mg PO BID #6 cap Hydrocodone/Acetaminophen [Hydrocodone-Acetamin 5-325 mg] 1 tab PO Q6HPRN PRN #18 tablet MDD 4 PRN Reason: Pain Follow up with: MASTER PANTOJA NP [Primary Care Provider] - CONCHITA FERRELL DO [ACTIVE STAFF] - 1 Week (should call me for any issue that may arise such as worsening abdominal pelvic pain or fever should fu in office in 1 wk for postop care should keep incision clean and dry)
[2021-12-20 08:02] LABS: ALBUMIN 3.9 g/dL (3.5-5.0); ALKALINE PHOSPHATASE 69 U/L (38-126); ANION GAP 15.2 MEQ/L (5-15); BLOOD UREA NITROGEN 5 mg/dL (7-17); CHLORIDE 107 mmol/L (98-107); Calcium 8.3 mg/dL (8.4-10.2); Carbon Dioxide 22 mmol/L (22-30); Creatinine 1 0.68 mg/dL (0.52-1.04); EST GLOMERULAR FILTRATION RATE > 60.0 ML/MIN; Glucose 134 mg/dL (74-106); Potassium 4.3 mmol/L (3.5-5.1); SGOT/AST 24 U/L (14-36); SGPT/ALT 19 U/L (0-35); SODIUM 140 mmol/L (137-145); Total Protein 6.7 g/dL (6.3-8.2)
--- NOTE | 2021-12-20 08:57 | XRAY ---
Indication: Post uterine ablation bleeding. Perforation. Multiple contiguous axial images obtained through the abdomen and pelvis using 80 cc Isovue 370 contrast. Gastrografin oral contrast also given. Comparison: December 30, 2020 Lung bases demonstrates minimal subsegmental atelectasis/scarring. No infiltrate, effusion, or pneumothorax. Heart not enlarged. Contrasted stomach and bowel loops appear nonobstructed with normal appendix. There is small free air throughout the abdomen and also umbilicus presumed postoperative. Tiny pelvic free fluid also presumed postoperative. No walled off fluid collection or Gastrografin contrast extravasation/leak. Distended urinary bladder demonstrates intraluminal air bubble presumed iatrogenic from recent catheterization. Gallbladder is mildly distended without gallstones or biliary distention. Liver demonstrates stable hemangiomas. Remaining liver, gallbladder, pancreas, spleen, adrenal glands, kidneys, ureters, bladder, uterus, and aorta are unremarkable. No pathologic retroperitoneal lymphadenopathy. Osseous structures intact. Impression: 1. Small free air and tiny pelvic free fluid both presumed postoperative. 2. No abnormal fluid collection, Gastrografin contrast extravasation/leak, or evidence for perforation. 3. Incidental mild distended gallbladder. Sonogram may yield further information if clinically warranted. 4. Urinary bladder intraluminal air bubble presumed iatrogenic from recent catheterization. Gas forming bacterial infection not completely excluded in the right clinical setting. 5. Stable hepatic hemangiomas. Comment: Telephone report was given to ordering clinician, Dr. Zaidi at 1800 hrs. on December 19, 2021.
[2021-12-20] MEDS ORDERED: ROCEPHIN 2 Gm-D5w 50ML BAG** 2 G/50 ML IVPB IV SCH (10:00)
--- NOTE | 2021-12-20 11:25 | OP ---
SURGERY DATE: 12/19/2021 SURGERY TIME: 1017 PREOPERATIVE DIAGNOSIS: 1. CONTRACEPTIVE CARE MANAGEMENT, MULTIPARITY, DESIRING TUBAL STERILATION. 2. HISTORY OF ENDOMETRIOSIS. 3. ABNORMAL UTERINE BLEEDING. POSTOPERATIVE DIAGNOSIS: 1. CONTRACEPTIVE CARE MANAGEMENT, MULTIPARITY, DESIRING TUBAL STERILATION. 2. ABNORMAL UTERINE BLEEDING. 3. REMOVAL OF NEXPLANON. PROCEDURE: 1. Laparoscopic tubal sterilization via Falope ring application. 2. Removal of Nexplanon. 3. Hysteroscopy D&C with attempted ablation. SURGEON: Dr. Andre Zaidi. VISCOSITY TESTER: Britt. ANESTHESIA: General. ESTIMATED BLOOD LOSS: Minimal. COMPLICATIONS: None. FINDINGS: The risks, benefits, indications, and alternatives of the procedure were reviewed with the patient prior to the procedure. Patient understood the risks of infection, bleeding, bowel injury, bladder injury, ureteral injury, uterine perforation, pelvic infection, thromboembolic disorder associated with this surgery as well as possible future and ectopic that may be associated with this procedure and desires to have this procedure as a possible means to alleviate her current medical condition. DESCRIPTION OF PROCEDURE: At this point, the patient was taken to the OR, given general sedation, placed in the dorsal lithotomy position, prepped and draped in the usual sterile fashion. A weighted speculum was then placed in the patient's vagina and the anterior lip of the cervix was grasped with the single toothed tenaculum. A uterine manipulator was then inserted into the endocervical region as a means to manipulate the uterus. Attention was then turned to the patient's abdomen where a 5 mm skin incision was made in the umbilical fold. A 5 mm trocar and sleeve were advanced under direct visualization where pneumoperitoneum was obtained with 4 liters of CO2 gas. A survey of the patient's pelvis and abdomen appeared to be within normal limits with no endometriotic lesions that were noted in the pelvic region. At this point, an additional incision was made 2 cm above the symphysis pubis where an 8 mm incision was made and 8 mm trocar and sleeve were advanced under direct visualization 2 cm above the symphysis pubis. From this point, the uterus was elevated and the Falope ring applicator was then taken to the right isthmic region of the fallopian tube where it was grasped and Falope ring was applied with perfect placement and hemostasis was obtained. The Falope ring applicator was reloaded and then the left fallopian tube was identified and on the isthmic region the Falope ring was placed on its side without complication and hemostasis was obtained. On survey, the patient's pelvis and abdomen again revealed normal anatomy with no endometriotic implants that were noted. Bilateral ovaries appeared to be within normal limits. From this point, all instruments were removed from the patient's abdominal region and the incision was closed with 4-0 Monocryl suture. Attention was then turned to the patient's vaginal region where a weighted speculum was then placed into the patient's vagina and the anterior lip of the cervix was grasped with the single tenaculum. Endocervical dilators were placed through the endocervical canal as a means to dilate the cervix and at this point, a 5 mm hysteroscope was then placed into the fundus of the uterus where visualization appeared to be within normal limits with no gross abnormalities that were noted. A curette was then subsequently placed into the fundus of the uterus and curettage was performed in all quadrants of the uterus retrieving a mild to moderate amount of tissue. From this point, all instruments were removed and the NovaSure instrument was then placed into the fundus of the uterus and retracted approximately 1 cm. After two attempts, the machine would not engage. Therefore, the procedure was abandoned. From this point, the left arm was identified and a 0.5 mm incision was made on the left lower bicep region. With the #11 blade, a hemostat was used to remove the Nexplanon and was done so without complication and a Band-aid was placed on the incisional site. At this point, all instruments and Laps were accounted for X 2. The patient was then taken out of the dorsal lithotomy position, was taken out of anesthesia, and was then taken to her room in stable condition.
== END 2021-12-20 09:21 | disposition home or self-care (01) ==
LOC: SDC 07:59 → MED SURG 14:30 → SDC 12-20 09:21
PROVIDERS: ATTEND Obstetrics & Gynecology
DX: Z30.2 Encounter for sterilization (principal); N93.9 Abnormal uterine and vaginal bleeding, unspecified; G89.18 Other acute postprocedural pain; Z87.42 Personal history of other diseases of the female genital tract; Z20.828 Contact with and (suspected) exposure to other viral communicable diseases
CPT/HCPCS: 36415; 74177; 76830; 80053; 81025; 85025; 86850; 86900; 86901; J0690; J0696; J1100; J1170; J1200; J1885; J2250; J2270; J2370; J2405; J2704; J2920; J3010

== ENCOUNTER 2022-01-08 09:46 | Day surgery (SDC) | payer BC, OTHER ==
--- NOTE | 2022-01-08 07:59 | HP ---
DATE OF SURGERY: 01/08/2022 HISTORY OF PRESENT ILLNESS: The patient is a 26-year-old female had diarrhea, blood and stool for a while. Family history of grandmother with colon cancer. Her father has Crohn's disease. PAST MEDICAL HISTORY: Asthma. Depression. Severe headaches and migraines. PAST SURGICAL HISTORY: Cyst on her wrist. MEDICATIONS: None on a regular basis. ALLERGIES: NKDA. SHELLFISH. FAMILY HISTORY: Diabetes. Crohn's. Colon cancer. Liver disease. Hypertension. SOCIAL HISTORY: No smoking. No alcohol abuse. REVIEW OF SYSTEMS: Fourteen systems reviewed per admission assessment. No chest pain or palpitations. Other systems negative or noncontributory as above and per preadmission questionnaire. PHYSICAL EXAMINATION: GENERAL: No acute distress. HEENT: Sclerae nonicteric. NECK: No JVD. CHEST: Equal excursion, nonlabored breathing. CVS: Regular rate and rhythm. ABDOMEN: Soft. No peritoneal signs. EXTREMITIES: No significant edema. NEURO: Alert, oriented, moving extremities symmetrically. RECTAL: Deferred timed to endoscopy exam. PSYCH: Appropriate mood and affect. IMPRESSION: Family history of colon cancer and Crohn's. History of rectal bleeding and diarrhea. She is in need of colonoscopy for evaluation. Risks and benefits explained in detail but not limited to bleeding or infection, risk of bowel injury or perforation possibly requiring further procedure, risk of missed or nondiagnosis or incomplete exam, possibly requiring barium enema, other studies or procedures, general risk of anesthesia or sedation, risk of bowel prep but not limited to. Possibility should she had inflammatory bowel disease or Crohn's, she may need to be referred to GI for medical management as we do not manage that medically. She understands, will proceed with outpatient colonoscopy under MAC anesthesia.
[2022-01-08] MEDS ORDERED: Lactated Ringers 1,000 ML IV SCH (10:00)
[2022-01-08] MEDS ORDERED: Versed 2 MG/2 ML Injection ONE (13:02)
[2022-01-08] MEDS ORDERED: DIPRIVAN 200 MG/20 ML IV ONE ×2 (13:02→13:14)
[2022-01-08 13:54] VITALS: O2SAT 99
[2022-01-08 14:18] VITALS: BP 124/82; PULSE 88
--- NOTE | 2022-01-08 14:58 | OP ---
SURGERY DATE/TIME: 01/08/2022 1259 PREOPERATIVE DIAGNOSIS: History of bleeding, history of some diarrhea, family history of colon cancer, family history of Crohn's disease, need for colonoscopy. POSTOPERATIVE DIAGNOSES: 1) ASA Class II. 2) Fair slightly limited bowel prep. 3) Small polyps sigmoid colon and rectum. 4) No visible macroscopic evidence of any Crohn's disease. PROCEDURES: 1) Colonoscopy to terminal ileum. 2) Retrograde Ileoscopy. 3) Random cold biopsies ileum to evaluate for microscopic ileitis. 4) Random cold biopsies of the colon to evaluate for microscopic colitis. 5) Hot snare polypectomy small early rectal polyp versus hyperplastic lesion. 6) Hot biopsy polypectomy small early sigmoid colon polyp versus hyperplastic lesion as well as small rectal early polyp versus hyperplastic lesion removed with hot biopsy polypectomy forceps. SURGEON: Dr. Justin Mcclelland. ANESTHESIA: MAC. ESTIMATED BLOOD LOSS: Minimal. INDICATIONS: As noted above. Risks and benefits explained in detail but not limited to and consent obtained. DESCRIPTION OF PROCEDURE AND FINDINGS: The patient is taken to the endoscopy room. MAC anesthesia induced. Digital rectal exam did not reveal any rectal masses. Video colonoscope inserted and passed up through the slightly tortuous sigmoid, descending, transverse and ascending colon around to the cecum. Appendiceal orifice and valve well visualized. The scope was finally able to be passed up the terminal ileum. Retrograde Ileoscopy performed which was grossly unremarkable. Random cold biopsies taken in the ileum to evaluate for microscopic ileitis. Random cold biopsies of the colon to evaluate for microscopic colitis was accomplished. The prep was only fair with liquidy semisolid stool throughout the colon, this is suctioned and irrigated as clear as possible. The scope is withdrawn over the next 8 minutes doing random biopsies. The scope pulled back. There was a small 2 mm polyp in the sigmoid colon removed with hot biopsy polypectomy. Another small 2 mm to 1.5 mm early polyp versus hyperplastic lesion in the rectum is removed with hot biopsy forceps. There was no macroscopic evidence of any gross inflammation to suggest Crohn's. She had some minimal internal hemorrhoids. There were no signs of any fresh or old bleeding. The patient tolerated the procedure well. There were no immediate complications.
== END 2022-01-08 14:13 | disposition home or self-care (01) ==
LOC: SDC 09:46
PROVIDERS: ATTEND Surgery
DX: Z87.19 Personal history of other diseases of the digestive system (principal); Z80.0 Family history of malignant neoplasm of digestive organs; Z83.79 Family history of other diseases of the digestive system; K63.5 Polyp of colon; K62.1 Rectal polyp; Z83.3 Family history of diabetes mellitus
CPT/HCPCS: 81025; 82947; J2250; J2704

== ENCOUNTER 2022-02-17 06:41 | Emergency (ER) | payer BC, OTHER ==
[2022-02-17] MEDS ORDERED: TORAdol 30 mg Injection IV ONE (06:45)
[2022-02-17 06:57] LABS: Absolute Neutrophil Ct (ANC) 3.21 x10^3/uL (1.4-6.9); Basophil (Absolute #) 0.04 x10^3/uL (0-0.4); Eosinophil % 1.9 % (0.00-5.0); Hematocrit 41.6 % (35-47); Hemoglobin 13.7 g/dL (12.0-16.0); Lymphocyte (Absolute #) 1.51 x10^3/uL (1.0-4.6); Lymphocytes % 28.8 % (24.0-44.0); Mean Cell Volume 87.4 fL (78-100); Mean Corpuscular Hemoglobin 28.8 pg (26-32); Mean Corpuscular Hgb Concent. 32.9 g/dL (32-36); Mean Platelet Volume 10.7 fL (7.5-11.0); Monocyte (Absolute #) 0.37 x10^3/uL (0.0-1.3); Neutrophil % 61.1 % (36.0-66.0); Platelet Count 294 x10^3/uL (150-450); Red Blood Count 4.76 x10^6/uL (4.1-5.4); Red Cell Distribution Width 12.7 % (11.5-14.0); White Blood Count 5.3 x10^3/uL (4.0-10.5)
[2022-02-17] MEDS ORDERED: TORAdol 30 mg Injection ONE (06:57)
[2022-02-17 07:17] LABS: ALBUMIN 4.4 g/dL (3.5-5.0); ALKALINE PHOSPHATASE 83 U/L (38-126); ANION GAP 13.8 MEQ/L (5-15); BLOOD UREA NITROGEN 8 mg/dL (7-17); CHLORIDE 107 mmol/L (98-107); Calcium 8.6 mg/dL (8.4-10.2); Carbon Dioxide 23 mmol/L (22-30); EST GLOMERULAR FILTRATION RATE > 60.0 ML/MIN; Glucose 97 mg/dL (74-106); Potassium 4.1 mmol/L (3.5-5.1); SGOT/AST 26 U/L (14-36); SGPT/ALT 21 U/L (0-35); SODIUM 139 mmol/L (137-145); Total Protein 7.7 g/dL (6.3-8.2)
[2022-02-17] MEDS ORDERED: MORPHINE SULFATE 4 MG INJ IV ONE ×2 (07:27→09:05)
[2022-02-17] MEDS ORDERED: Zofran 4 MG/2 ML VIAL IV ONE (07:27)
[2022-02-17] MEDS ORDERED: Sodium Chloride 0.9% 1000 ML 1,000 ML IV STA ×2 (07:27→09:12)
--- NOTE | 2022-02-17 07:34 | ERPHSYRPT ---
- History of Present Illness Time Seen by Provider: 02/17/22 07:26 Historian: patient Exam Limitations: no limitations Patient Subjective Stated Complaint: pt states "I woke up from my sleep with intense pain." Triage Nursing Assessment: Pt presents to ED via SCAT 4, alert and oriented x3, skin pwd, pt c/o R sided flank pain that radiates to RLQ that started around 0200, pt afebrile, vitals wnl, last BM was 02/17/22 around 0230 Physician History: 26 years old female presented in the ER with chief complaint of periumbilical pain waking her up from sleep around 2 AM moderate to severe sharp with some radiation to right lower quadrant, aggravated with palpation movements/ambulation and no significant relieving factors. Associated with nausea and 3-4 episodes of nonprojectile, nonbilious vomiting without hemateme sis. Patient received Toradol before my evaluation and still having moderate intensity pain. No fever chills or urinary symptoms reported. Timing/Duration: hour(s) (5), constant, sudden, worse Activities at Onset: sleep Quality: sharpness Abdominal Pain Onset Location: RLQ, periumbilical Pain Radiation: no radiation Severity of Pain-Max: severe Severity of Pain-Current: moderate Modifying Factors: Worsens With: coughing, movement, palpation Associated Symptoms: nausea, vomiting, No fever/chills, No headache, No heartburn, No shortness of breath, No syncope Previous symptoms: no prior history Allergies/Adverse Reactions: shellfish derived Allergy (Intermediate, Verified 02/17/22 06:44) Hives Home Medications: Tirzepatide [Mounjaro] 2.5 mg SQ WEEKLY 01/08/22 [History] Hx Tetanus, Diphtheria Vaccination/Date Given: Yes Hx Influenza Vaccination/Date Given: No Hx Pneumococcal Vaccination/Date Given: No Immunizations Up to Date: Yes Travel Risk - International Travel Have you traveled outside of the country in past 3 weeks: No - Coronavirus Screening Are you exhibiting any of the following symptoms?: No Close contact with a COVID-19 positive Pt in past 14-21 Days: No - Vaccine Status Have you recieved a Covid-19 vaccination: No - Review of Systems Constitutional: No Symptoms Eyes: No Symptoms Ears, Nose, & Throat: No Symptoms Respiratory: No Symptoms Cardiac: No Symptoms Abdominal/Gastrointestinal: Abdominal Pain, Nausea, Vomiting Genitourinary Symptoms: No Symptoms Musculoskeletal: No Symptoms Neurological: No Symptoms Psychological: No Symptoms Endocrine: No Symptoms Hematologic/Lymphatic: No Symptoms Immunological/Allergic: No Symptoms - Past Medical History Pertinent Past Medical History: Yes Neurological History: Other ENT History: No Pertinent History Cardiac History: No Pertinent History Respiratory History: Asthma Endocrine Medical History: Other Musculoskeletal History: No Pertinent History GI Medical History: No Pertinent History History: No Pertinent History Psycho-Social History: No Pertinent History Female Reproductive Disorders: No Pertinent History Other Medical History: covid 3 end nov 2020,vaginal delivery nov 2020, multiple uti's . [facility] over a yr ago. pre diabetic - Past Surgical History Past Surgical History: Yes Neuro Surgical History: No Pertinent History Cardiac: No Pertinent History Respiratory: No Pertinent History Gastrointestinal: No Pertinent History Genitourinary: No Pertinent History Musculoskeletal: Orthopedic Surgery Female Surgical History: Tubal Ligation Other Surgical History: cyst removed from r wrist. complications from tubal 12/19/21 - Social History Smoking Status: Never smoker Exposure to second hand smoke: No Drug Use: none Patient Lives Alone: No Significant Family History: no pertinent family hx - Female History Hx Last Menstrual Period: 12/2021 Hx Now: (UNKN) - Nursing Vital Signs Nursing Vital Signs: Initial Vital Signs Temperature 97.9 F 02/17/22 06:43 Pulse Rate 87 02/17/22 06:43 Respiratory Rate 18 02/17/22 06:43 Blood Pressure 111/86 02/17/22 06:43 O2 Sat by Pulse Oximetry 99 02/17/22 06:43 Pain Scale Pain Intensity 10 - Physical Exam General Appearance: no apparent distress, alert Eye Exam: PERRL/EOMI Ears, Nose, Throat Exam: normal ENT inspection Neck Exam: normal inspection Respiratory Exam: normal breath sounds, lungs clear Cardiovascular Exam: regular rate/rhythm Gastrointestinal/Abdomen Exam: soft, normal bowel sounds, tenderness (Periumbilical/right lower quadrant), guarding Back Exam: normal inspection, normal range of motion, No CVA tenderness Extremity Exam: normal inspection, normal range of motion Neurologic Exam: alert, oriented x 3, cooperative, signals collection technician II-XII nml as tested, normal mood/affect Skin Exam: normal color SpO2 Interpretation: normal SpO2: 99 O2 Delivery: Room Air Ordered Tests: Active Orders 24 hr Category Date Time Status IV Insertion STAT Care 02/17/22 07:27 Active NPO (ED) STAT Care 02/17/22 07:27 Active ABDOMEN AND PELVIS W/0 CONTRAS [CT] Stat Exams 02/17/22 07:28 Taken CBC W DIFF Stat Lab 02/17/22 07:03 Completed CMP Stat Lab 02/17/22 07:03 Completed HCG QUALITATIVE,SERUM Stat Lab 02/17/22 07:03 Completed HCG, Quantitative (Inhouse) Stat Lab 02/17/22 07:48 Completed UA W/RFX CULTURE Stat Lab 02/17/22 Results Medication Summary Discontinued Medications Generic Name Dose Route Start Last Admin Trade Name Christianq PRN Reason Stop Dose Admin Sodium Chloride 1,000 mls @ 999 mls/hr 02/17/22 07:27 02/17/22 08:54 Sodium Chloride 0.9% 1000 Ml IV 02/17/22 08:27 Infused .Q1H1M STA Infusion Sodium Chloride Confirm 02/17/22 07:49 Sodium Chloride 0.9% 1000 Ml Administered 02/17/22 07:50 Dose 1,000 mls @ ud .ROUTE .STK-MED ONE Ketorolac Tromethamine 30 mg 02/17/22 06:45 02/17/22 06:57 Ketorolac Tromethamine 30 Mg/Ml Inj IV 02/17/22 06:46 30 mg STAT ONE Administration Ketorolac Tromethamine Confirm 02/17/22 06:57 Ketorolac Tromethamine 30 Mg/Ml Inj Administered 02/17/22 06:58 Dose 30 mg .ROUTE .STK-MED ONE Morphine Sulfate 4 mg 02/17/22 07:27 02/17/22 07:51 Morphine Sulfate 4 Mg/Ml Injection IV 02/17/22 07:28 4 mg STAT ONE Administration Morphine Sulfate Confirm 02/17/22 07:49 Morphine Sulfate 4 Mg/Ml Injection Administered 02/17/22 07:50 Dose 4 mg .ROUTE .STK-MED ONE Ondansetron HCl 4 mg 02/17/22 07:27 02/17/22 07:50 Ondansetron Hcl 4 Mg/2 Ml Vial IV 02/17/22 07:28 4 mg STAT ONE Administration Ondansetron HCl Confirm 02/17/22 07:49 Ondansetron Hcl 4 Mg/2 Ml Vial Administered 02/17/22 07:50 Dose 4 mg .ROUTE .STK-MED ONE Lab/Rad Data: Laboratory Result Diagrams 02/17/22 07:03 02/17/22 07:03 Laboratory Results 02/17/22 02/17/22 02/17/22 Range/Units Unknown 07:48 07:03 WBC (4.0-10.5) x10^3/uL RBC (4.1-5.4) x10^6/uL Hgb (12.0-16.0) g/dL Hct (35-47) % MCV (78-100) fL MCH (26-32) pg MCHC (32-36) g/dL RDW (11.5-14.0) % Plt Count (150-450) x10^3/uL MPV (7.5-11.0) fL Gran % (36.0-66.0) % Immature Gran % (Auto) (0.00-0.4) % Nucleat RBC Rel Count (0.00-0.1) % Eos # (Auto) (0-0.5) x10^3/uL Immature Gran # (Auto) (0.00-0.03) x10^3u/L Absolute Lymphs (auto) (1.0-4.6) x10^3/uL Absolute Monos (auto) (0.0-1.3) x10^3/uL Absolute Nucleated RBC (0.00-0.01) x10^3u/L Lymphocytes % (24.0-44.0) % Monocytes % (0.0-12.0) % Eosinophils % (0.00-5.0) % Basophils % (0.0-0.4) % Absolute Granulocytes (1.4-6.9) x10^3/uL Basophils # (0-0.4) x10^3/uL Sodium (137-145) mmol/L Potassium (3.5-5.1) mmol/L Chloride (98-107) mmol/L Carbon Dioxide (22-30) mmol/L Anion Gap (5-15) MEQ/L BUN (7-17) mg/dL Creatinine (0.52-1.04) mg/dL Estimated GFR ML/MIN Glucose (74-106) mg/dL Calcium (8.4-10.2) mg/dL Total Bilirubin (0.2-1.3) mg/dL AST (14-36) U/L ALT (0-35) U/L Alkaline Phosphatase (38-126) U/L Serum Total Protein (6.3-8.2) g/dL Albumin (3.5-5.0) g/dL Beta HCG, Quant < 2.39 mIU/ml Serum , Qual NEGATIVE (Negative) Urinalys Dipstick Clnc MAIN LAB Urine Color YELLOW (YELLOW) Urine Appearance CLEAR (CLEAR) Urine pH 8.5 A (5-6) Ur Specific [place] 1.020 (1.005-1.025) POC Urine Protein Conf 30 A (Negative) Urine Ketones >=160 A (NEGATIVE) Urine Nitrite NEGATIVE (NEGATIVE) Urine Bilirubin SMALL A (NEGATIVE) Urine Urobilinogen 0.2 (0-1) mg/dL Urine Leukocytes NEGATIVE (NEGATIVE) Urine WBC (Auto) Pending Urine RBC (Auto) Pending U Epithel Cells (Auto) Pending Urine Bacteria (Auto) Pending Urine RBC NEGATIVE (0-5) Lyndon/ul Ur Culture Indicated? Pending Urine Glucose NEGATIVE (NEGATIVE) mg/dL 02/17/22 02/17/22 Range/Units 07:03 07:03 WBC 5.3 (4.0-10.5) x10^3/uL RBC 4.76 (4.1-5.4) x10^6/uL Hgb 13.7 (12.0-16.0) g/dL Hct 41.6 (35-47) % MCV 87.4 (78-100) fL MCH 28.8 (26-32) pg MCHC 32.9 (32-36) g/dL RDW 12.7 (11.5-14.0) % Plt Count 294 (150-450) x10^3/uL MPV 10.7 (7.5-11.0) fL Gran % 61.1 (36.0-66.0) % Immature Gran % (Auto) 0.4 (0.00-0.4) % Nucleat RBC Rel Count 0.0 (0.00-0.1) % Eos # (Auto) 0.10 (0-0.5) x10^3/uL Immature Gran # (Auto) 0.02 (0.00-0.03) x10^3u/L Absolute Lymphs (auto) 1.51 (1.0-4.6) x10^3/uL Absolute Monos (auto) 0.37 (0.0-1.3) x10^3/uL Absolute Nucleated RBC 0.00 (0.00-0.01) x10^3u/L Lymphocytes % 28.8 (24.0-44.0) % Monocytes % 7.0 (0.0-12.0) % Eosinophils % 1.9 (0.00-5.0) % Basophils % 0.8 (0.0-0.4) % Absolute Granulocytes 3.21 (1.4-6.9) x10^3/uL Basophils # 0.04 (0-0.4) x10^3/uL Sodium 139 (137-145) mmol/L Potassium 4.1 (3.5-5.1) mmol/L Chloride 107 (98-107) mmol/L Carbon Dioxide 23 (22-30) mmol/L Anion Gap 13.8 (5-15) MEQ/L BUN 8 (7-17) mg/dL Creatinine 0.80 (0.52-1.04) mg/dL Estimated GFR > 60.0 ML/MIN Glucose 97 (74-106) mg/dL Calcium 8.6 (8.4-10.2) mg/dL Total Bilirubin 0.60 (0.2-1.3) mg/dL AST 26 (14-36) U/L ALT 21 (0-35) U/L Alkaline Phosphatase 83 (38-126) U/L Serum Total Protein 7.7 (6.3-8.2) g/dL Albumin 4.4 (3.5-5.0) g/dL Beta HCG, Quant mIU/ml Serum , Qual (Negative) Urinalys Dipstick Clnc Urine Color (YELLOW) Urine Appearance (CLEAR) Urine pH (5-6) Ur Specific [place] (1.005-1.025) POC Urine Protein Conf (Negative) Urine Ketones (NEGATIVE) Urine Nitrite (NEGATIVE) Urine Bilirubin (NEGATIVE) Urine Urobilinogen (0-1) mg/dL Urine Leukocytes (NEGATIVE) Urine WBC (Auto) Urine RBC (Auto) U Epithel Cells (Auto) Urine Bacteria (Auto) Urine RBC (0-5) Lyndon/ul Ur Culture Indicated? Urine Glucose (NEGATIVE) mg/dL - Progress Progress: improved, re-examined Progress Note: 02/17/22 09:06 26 years old is evaluated for periumbilical/right lower quadrant pain. She is given fluids and symptomatic treatment for pain, on reevaluation feeling better. Pain is not completely resolved. Has normal white count, unremarkable chemi stries. CT abdomen pelvis without contrast showed finding consistent with mesenteric adenitis in the right lower quadrant area without any signs of acute appendicitis. It did show some intermediate density fluid in the pelvis likely subacute small hemoperitoneum versus exudative in nature. I have discussed with patient and she denies having any history of STDs or vaginal discharge. She does not have any pelvic pain or tenderness. Recommended taking Tylenol ibuprofen and outpatient follow-up. Discussed signs symptoms of worsening needing return to ER which she seems understanding. Stable for discharge. Counseled pt/family regarding: lab results, diagnosis, need for follow-up, rad results - Departure Departure Disposition: Home Clinical Impression: Acute mesenteric adenitis Condition: Stable Critical Care Time: No Referrals: BABAK KO MD [Primary Care Provider] - Follow up/PCP as directed (In 2 days for reevaluation) Instructions: Mesenteric Lymphadenitis (DC) Additional Instructions: Take Tylenol/ibuprofen as needed. Follow-up with primary care for reevaluation. Return to ER for worsening pain, intractable nausea vomiting, fever chills etc. Prescriptions: Ibuprofen 600 mg PO Q6HPRN PRN 10 Days #20 tablet PRN Reason: Pain
[2022-02-17] MEDS ORDERED: MORPHINE SULFATE 4 MG INJ ONE ×2 (07:49→09:08)
[2022-02-17] MEDS ORDERED: Sodium Chloride 0.9% 1000 ML 1,000 ML ONE (07:49)
[2022-02-17] MEDS ORDERED: Zofran 4 MG/2 ML VIAL ONE (07:49)
[2022-02-17 09:04] LABS: Appearance CLEAR (CLEAR); Bilirubin SMALL (NEGATIVE); Dipstick done @ ? MAIN LAB; Glucose NEGATIVE (NEGATIVE); Ketones >=160 (NEGATIVE); Nitrite NEGATIVE (NEGATIVE); Ph 8.5 (5-6); Protein,Urine Dip 30 (Negative); RBC NEGATIVE Ery/ul (0-5); Urobilinogen 0.2 mg/dL (0-1)
[2022-02-17 09:05] LABS: Bacteria RARE /HPF (NEGATIVE); Epithelial Cells RARE /HPF (FEW); Mucus SLIGHT /HPF (NEGATIVE); WBC 0-2 /HPF (0-5)
[2022-02-17 09:06] VITALS: BP 134/70; PULSE 76
[2022-02-17 09:06] LABS: Urine Cultured Indicated? NO
[2022-02-17 09:09] VITALS: O2SAT 99
--- NOTE | 2022-02-17 09:24 | XRAY ---
Indication: Right flank/right lower quadrant pain. Nausea and vomiting. Multiple contiguous axial images obtained through the abdomen and pelvis without contrast. Comparison: December 19, 2021 Lung bases clear. Heart not enlarged. Noncontrasted stomach and bowel loops nonobstructed with normal appendix. Small cul-de-sac fluid presumed physiologic from rupture/leaking cyst. No free air. Again bilateral tubal ligation rings. Remaining liver, gallbladder, pancreas, spleen, adrenal glands, kidneys, ureters, bladder, uterus, and aorta are unremarkable for noncontrast exam. Osseous structures intact. Impression: 1. Small cul-de-sac fluid presumed physiologic. 2. Remaining CT abdomen/pelvis without contrast exam is negative. Comment: Preliminary interpretation made by C. No critical discrepancy.
== END 2022-02-17 10:47 | disposition home or self-care (01) ==
LOC: ED 06:41
DX: I88.0 Nonspecific mesenteric lymphadenitis (principal); R10.33 Periumbilical pain; R11.2 Nausea with vomiting, unspecified; R73.03 Prediabetes; Z79.85 Long-term (current) use of injectable non-insulin antidiabetic drugs; Z28.310 Unvaccinated for COVID-19; Z86.16 Personal history of COVID-19
CPT/HCPCS: 36415; 74176; 80053; 81015; 84702; 84703; 85025; 96360; 96374; 96375; 96376; 99284; J1885; J2270; J2405

== ENCOUNTER 2024-04-10 19:57 | Emergency (ER) | payer BC ==
[2024-04-10 20:06] VITALS: RESP 18; TEMP 98.4
--- NOTE | 2024-04-10 20:27 | ERPHSYRPT ---
- History of Present Illness Time Seen by Provider: 04/10/24 20:15 Source: patient Exam Limitations: no limitations Physician History: This is a 28-year-old white female patient who was told to come to the emergency department by her primary care provider because of conjunctivitis type symptoms with burning redness of the whites of her eyes. Recently, patient was diagnosed with MRSA growing in her postoperative abdominal wall wound. The culture grew out MRSA and was sensitive to Cipro. I reviewed this recent culture. The patient took her first dose of Cipro 3-1/2 hours prior to my evaluation of her. She has not had a fever. Timing/Duration: today Location: bilateral eyes Severity: mild Associated Symptoms: burning, itching, redness, matting, No sensitivity to light, No eyelid swelling, No foreign body sensation Visual Assistive Devices: None Allergies/Adverse Reactions: shellfish derived Allergy (Intermediate, Verified 04/10/24 20:06) Hives Home Medications: Ciprofloxacin [Cipro 500 MG] 1 tab PO BID 04/10/24 [History] Methylphenidate HCl [Jornay Pm] 80 mg PO HS 04/10/24 [History] Hx Tetanus, Diphtheria Vaccination/Date Given: Yes Hx Influenza Vaccination/Date Given: No Hx Pneumococcal Vaccination/Date Given: No Travel Risk - International Travel Have you traveled outside of the country in past 3 weeks: No - Emerging Infectious Disease Are you exhibiting symptoms associated with any current EIDs: No - Review of Systems Constitutional: No Symptoms Eyes: Eye Redness, Itchy Ears, Nose, & Throat: No Symptoms Respiratory: No Symptoms Cardiac: No Symptoms Abdominal/Gastrointestinal: No Symptoms Genitourinary Symptoms: No Symptoms Musculoskeletal: No Symptoms Skin: No Symptoms Neurological: No Symptoms Psychological: No Symptoms Endocrine: No Symptoms Hematologic/Lymphatic: No Symptoms Immunological/Allergic: No Symptoms All Other Systems: Reviewed and Negative - Past Medical History Pertinent Past Medical History: Yes Neurological History: Migraines ENT History: No Pertinent History Cardiac History: No Pertinent History Respiratory History: Asthma Endocrine Medical History: No Pertinent History Musculoskeletal History: Other GI Medical History: No Pertinent History History: No Pertinent History Psycho-Social History: No Pertinent History Female Reproductive Disorders: No Pertinent History Other Medical History: ANXIETY, DEPRESSION, ADHD - Past Surgical History Past Surgical History: Yes Neuro Surgical History: No Pertinent History Cardiac: No Pertinent History Respiratory: No Pertinent History Gastrointestinal: No Pertinent History Genitourinary: No Pertinent History Musculoskeletal: Orthopedic Surgery Female Surgical History: Tubal Ligation Other Surgical History: cyst removed from r wrist. complications from tubal 12/19/21 Significant Family History: no pertinent family hx - Female History Hx Last Menstrual Period: 05/04/13 - Social History Smoking Status: Never smoker Exposure to second hand smoke: No Drug Use: none Patient Lives Alone: No - Nursing Vital Signs Nursing Vital Signs: Initial Vital Signs Temperature 98.4 F 04/10/24 20:04 Pulse Rate 99 H 04/10/24 20:04 Respiratory Rate 18 04/10/24 20:04 Blood Pressure 124/84 04/10/24 20:04 O2 Sat by Pulse Oximetry 99 04/10/24 20:04 Pain Scale Pain Intensity 4 - Physical Exam General Appearance: no apparent distress, alert, anxiety Eye Exam: right eye: other (Bilateral conjunctivitis), bilateral eye: PERRL, EOMI Ears, Nose, Throat Exam: normal ENT inspection, moist mucous membranes Neck Exam: normal inspection, non-tender, supple, full range of motion Respiratory Exam: airway intact, No chest tenderness, No respiratory distress Gastrointestinal Exam: soft, normal bowel sounds, No tenderness Extremity Exam: normal inspection, normal range of motion, pelvis stable Neurologic: alert, oriented x 3, cooperative, business writer II-XII nml as tested, normal mood/affect, nml cerebellar function, nml station & gait, sensation nml Skin Exam: normal color, warm, dry Lymphatic: No adenopathy SpO2 Interpretation: normal SpO2: 99 O2 Delivery: Room Air - Progress Progress: unchanged Progress Note: 04/10/24 20:42 My medical decision making and the assignment of low complexity of this patient's medical issue today is based on review of the patient's past medical history, review the patient's medication list, reviewed patient drug allergy list, history present illness and physical findings on examination. I also reviewed outpatient culture and sensitivity report which I also interpreted. No radiographic or laboratory studies are necessary in this patient's workup today. The patient likely has bilateral conjunctivitis which may be bacterial or viral in origin. It is my opinion the patient would benefit from Cortisporin ophthalmic solution drops and to continue with the Cipro orally. The MRSA is sensitive to Cipro and should not require any topical MRSA treatment as this is being used systemically. The drops will provide the patient with both antibiotic and a steroid for comfort. Counseled pt/family regarding: diagnosis, need for follow-up Medical Desision Making - Risk of complications The pt has a mod risk of morbidity or mortality based on: Need for prescription drug management - Departure Departure Disposition: Home Clinical Impression: Bilateral conjunctivitis Condition: Stable Critical Care Time: No Referrals: DEYANIRA SYED, CERTIFIED SCRUM MASTER [Primary Care Provider] - Follow up/PCP as directed Additional Instructions: Continue your Cipro antibiotic as prescribed. Use the Cortisporin ophthalmologic solution as prescribed. Return to the emergency department if symptoms worsen. On 04/13/2024, call an tufting machine operator or academic affairs specialist to make an appointment for follow-up for further evaluation management.
[2024-04-10] MEDS ORDERED: Cortisporin Eye Drops OP ONE (20:50)
[2024-04-10] MEDS: Cortisporin Eye Drops OP SCH (20:52)
[2024-04-10 21:08] VITALS: BP 93/69; PULSE 102; O2SAT 97
== END 2024-04-10 21:19 | disposition home or self-care (01) ==
LOC: ED 19:57
DX: H10.9 Unspecified conjunctivitis (principal); Z79.899 Other long term (current) drug therapy
CPT/HCPCS: 99283; A9270-GY

== ENCOUNTER 2024-12-08 12:17 | Observation (INO) | payer BC ==
--- NOTE | 2024-12-08 12:47 | ERPHSYRPT ---
- History of Present Illness Time Seen by Provider: 12/08/24 12:44 Historian: patient Exam Limitations: no limitations Physician History: Patient is a 29-year-old female presents to our ED as a referral from [facility] for evaluation of possible incarcerated hernia. Patient states she has a history of dehiscence postsurgery. Patient had breast reconstruction surgery and states that the donor site at her lower abdomen has been symptomatic. Patient has observed pain at this location along with protruding soft tissue which she believes is bowel. Patient symptoms have gotten worse over the past day. Patient states she has not projectile vomiting and experiencing diarrhea. Patient has hypoactive bowel sounds on exam. No trauma no fever. Symptoms are worse when she stands. No active pain at this time while she is laying flat. Patient declined pain medication. She voices no other complaints or concerns at this time. Patient declined pain medication. Portions of this note were created with voice recognition technology. There may be grammatical, spelling, punctuation or sound alike errors Timing/Duration: today Activities at Onset: none Quality: aching Abdominal Pain Onset Location: other Pain Radiation: no radiation Severity of Pain-Max: moderate Severity of Pain-Current: mild (Lower abdomen) Modifying Factors: Improves With: other (Standing increases pain.) Associated Symptoms: other (Reject all vomiting and diarrhea) Previous symptoms: no prior history Allergies/Adverse Reactions: shellfish derived Allergy (Intermediate, Verified 04/10/24 20:06) Hives Home Medications: Lisdexamfetamine Dimesylate [Vyvanse] 60 mg PO DAILY 12/08/24 [History] Hx Tetanus, Diphtheria Vaccination/Date Given: Yes Hx Influenza Vaccination/Date Given: No Hx Pneumococcal Vaccination/Date Given: No Travel Risk - Emerging Infectious Disease Are you exhibiting symptoms associated with any current EIDs: No - Review of Systems All Other Systems: Reviewed and Negative - Past Medical History Pertinent Past Medical History: Yes Neurological History: Migraines ENT History: No Pertinent History Cardiac History: No Pertinent History Respiratory History: Asthma Endocrine Medical History: No Pertinent History Musculoskeletal History: Other GI Medical History: No Pertinent History History: No Pertinent History Psycho-Social History: No Pertinent History Female Reproductive Disorders: No Pertinent History Other Medical History: ANXIETY, DEPRESSION, ADHD - Past Surgical History Past Surgical History: Yes Neuro Surgical History: No Pertinent History Cardiac: No Pertinent History Respiratory: No Pertinent History Gastrointestinal: No Pertinent History Genitourinary: No Pertinent History Musculoskeletal: Orthopedic Surgery Female Surgical History: Tubal Ligation Other Surgical History: cyst removed from r wrist. complications from tubal 12/19/21 Significant Family History: no pertinent family hx - Female History Hx Last Menstrual Period: 05/04/13 Hx Now: No - Social History Smoking Status: Never smoker Exposure to second hand smoke: No Drug Use: none - Social Determinants of Health Will the patient participate in the screening: Yes Do you worry about a steady place to live?: No In the past 12 months,have you had to go without utilities?: No Transportation Issues: No Has anyone in your support network made you feel unsafe?: No Have you or anyone in your house had to go w/o enough food: No - Nursing Vital Signs Nursing Vital Signs: Initial Vital Signs Temperature 97.9 F 12/08/24 12:27 Pulse Rate 97 H 12/08/24 12:27 Respiratory Rate 18 12/08/24 12:27 Blood Pressure 114/73 12/08/24 12:27 O2 Sat by Pulse Oximetry 100 12/08/24 12:27 Pain Scale Pain Intensity 4 - Physical Exam General Appearance: no apparent distress, alert Eye Exam: PERRL/EOMI, eyes nml inspection Ears, Nose, Throat Exam: normal ENT inspection, moist mucous membranes Neck Exam: normal inspection, full range of motion Respiratory Exam: normal breath sounds, lungs clear, airway intact, No respiratory distress Cardiovascular Exam: regular rate/rhythm, normal heart sounds Gastrointestinal/Abdomen Exam: soft, tenderness, other (Lower abdominal tenderness. Hypoactive bowel sounds), No mass Back Exam: normal inspection, normal range of motion, No CVA tenderness, No vertebral tenderness Extremity Exam: normal inspection, normal range of motion, pelvis stable Neurologic Exam: alert, oriented x 3, cooperative, normal mood/affect, sensation nml, No motor deficits Skin Exam: normal color, warm, dry SpO2 Interpretation: normal SpO2: 100 O2 Delivery: Room Air - Course Nursing assessment & vital signs reviewed: Yes - CT Exams Abdomen/Pelvis CT Interpretation: Tele-radiologist Report (CT scan suggestive of early appendicitis) Ordered Tests: Active Orders 24 hr Category Date Time Status IV Insertion STAT Care 12/08/24 12:41 Active ABDOMEN AND PELVIS W/0 CONTRAS [CT] Stat Exams 12/08/24 12:42 Completed CBC W DIFF Stat Lab 12/08/24 13:30 Completed CMP Stat Lab 12/08/24 13:30 Completed CULTURE,URINE Stat Lab 12/08/24 12:41 Received HCG QUALITATIVE, URINE Stat Lab 12/08/24 14:30 Completed LIPASE Stat Lab 12/08/24 13:30 Completed Lactic Acid Stat Lab 12/08/24 12:41 Completed Lactic Acid Stat Lab 12/08/24 15:28 Received TROPONIN Q4H Lab 12/08/24 13:30 Completed TROPONIN Q4H Lab 12/08/24 16:45 Ordered TROPONIN Q4H Lab 12/08/24 20:45 Ordered UA W/RFX UR CULTURE Stat Lab 12/08/24 12:41 Completed Medication Summary Generic Name Dose Route Start Last Admin Trade Name Freq PRN Reason Stop Dose Admin Sodium Chloride 1,000 mls @ 100 mls/hr 12/08/24 12:45 12/08/24 12:56 Sodium Chloride 0.9% 1000 Ml IV 01/07/25 12:44 100 mls/hr .Q10H BASSEM Administration Piperacillin Sod/Tazobactam 100 mls @ 200 mls/hr 12/08/24 15:40 12/08/24 16:00 Sod 3.375 gm/ Sodium Chloride IV 12/08/24 16:09 200 mls/hr STAT STA 200 mls/hr Administration Discontinued Medications Generic Name Dose Route Start Last Admin Trade Name Freq PRN Reason Stop Dose Admin Sodium Chloride Confirm 12/08/24 15:51 Sodium Chloride 0.9% Administered 12/08/24 15:52 Dose 100 mls @ ud .ROUTE .STK-MED ONE Piperacillin Sod/Tazobactam Sod Confirm 12/08/24 15:51 Piperacillin/Tazobactam Sodium 3.375 Gm Vial Administered 12/08/24 15:52 Dose 3.375 gm IV .STK-MED ONE Lab/Rad Data: Laboratory Result Diagrams 12/08/24 13:30 12/08/24 13:30 Laboratory Results 12/08/24 12/08/24 12/08/24 Range/Units 14:30 13:30 13:30 WBC (3.98-10.04) x10^3/uL RBC (3.93-5.22) x10^6/uL Hgb (11.2-15.7) g/dL Hct (34.1-44.9) % MCV (79.4-94.8) fL MCH (25.6-32.2) pg MCHC (32.2-35.5) g/dL RDW (11.7-14.4) % Plt Count (182-369) x10^3/uL MPV (9.4-12.3) fL Gran % (34.0-71.1) % Immature Gran % (Auto) (0.001-0.429) % Nucleat RBC Rel Count (0.00-0.2) % Eos # (Auto) (0.04-0.36) x10^3/uL Immature Gran # (Auto) (0.001-0.031) x10^3u/L Absolute Lymphs (auto) (1.18-3.74) x10^3/uL Absolute Monos (auto) (0.24-0.86) x10^3/uL Absolute Nucleated RBC (0.00-0.012) x10^3u/L Lymphocytes % (19.3-51.7) % Monocytes % (4.7-12.5) % Eosinophils % (0.7-5.8) % Basophils % (0.1-1.2) % Absolute Granulocytes (1.56-6.13) x10^3/uL Basophils # (0.01-0.08) x10^3/uL Sodium 139 (135-145) mmol/L Potassium 4.0 (3.5-5.1) mmol/L Chloride 104 (98-107) mmol/L Carbon Dioxide 26 (22-30) mmol/L Anion Gap 12.5 (5-15) MEQ/L BUN 8 (7-17) mg/dL Creatinine 1.01 (0.52-1.04) mg/dL Estimated GFR 76.3 ML/MIN Glucose 82 (74-106) mg/dL Lactic Acid (0.4-2.0) Calcium 9.3 (8.4-10.2) mg/dL Total Bilirubin 0.20 (0.2-1.3) mg/dL AST 33 (14-36) U/L ALT 29 (0-35) U/L Alkaline Phosphatase 66 (38-126) U/L Troponin I < 0.012 (0.000-0.033) ng/mL Serum Total Protein 7.7 (6.3-8.2) g/dL Albumin 4.5 (3.5-5.0) g/dL Lipase 69 (23-300) U/L Urine Color (Yellow) Urine Appearance (Clear) Urine pH (4.6-8.0) Ur Specific [place] (1.005-1.030) Urine Protein (Negative) Urine Glucose (UA) (Negative) mg/dL Urine Ketones (Negative) Urine Blood (Negative) Urine Nitrite (Negative) Urine Bilirubin (Negative) Urine Urobilinogen (0.2) mg/dL Ur Leukocyte Esterase (Negative) U Hyaline Cast (Auto) (0-2) /LPF Urine Microscopic RBC (0-5) /HPF Urine Microscopic WBC (0-5) /HPF Ur Epithelial Cells (None Seen) /HPF Urine Bacteria (None Seen) /HPF Urine Yeast (Budding) (None Seen) /HPF Urine Culture Reflexed (NO) Urine HCG, Qual NEGATIVE (NEGATIVE) 12/08/24 12/08/24 12/08/24 Range/Units 13:30 12:41 12:41 WBC 6.1 (3.98-10.04) x10^3/uL RBC 4.80 (3.93-5.22) x10^6/uL Hgb 14.0 (11.2-15.7) g/dL Hct 44.0 (34.1-44.9) % MCV 91.7 (79.4-94.8) fL MCH 29.2 (25.6-32.2) pg MCHC 31.8 L (32.2-35.5) g/dL RDW 12.8 (11.7-14.4) % Plt Count 282 (182-369) x10^3/uL MPV 11.4 (9.4-12.3) fL Gran % 60.3 (34.0-71.1) % Immature Gran % (Auto) 0.5 H (0.001-0.429) % Nucleat RBC Rel Count 0.0 (0.00-0.2) % Eos # (Auto) 0.25 (0.04-0.36) x10^3/uL Immature Gran # (Auto) 0.03 (0.001-0.031) x10^3u/L Absolute Lymphs (auto) 1.61 (1.18-3.74) x10^3/uL Absolute Monos (auto) 0.48 (0.24-0.86) x10^3/uL Absolute Nucleated RBC 0.00 (0.00-0.012) x10^3u/L Lymphocytes % 26.4 (19.3-51.7) % Monocytes % 7.9 (4.7-12.5) % Eosinophils % 4.1 (0.7-5.8) % Basophils % 0.8 (0.1-1.2) % Absolute Granulocytes 3.68 (1.56-6.13) x10^3/uL Basophils # 0.05 (0.01-0.08) x10^3/uL Sodium (135-145) mmol/L Potassium (3.5-5.1) mmol/L Chloride (98-107) mmol/L Carbon Dioxide (22-30) mmol/L Anion Gap (5-15) MEQ/L BUN (7-17) mg/dL Creatinine (0.52-1.04) mg/dL Estimated GFR ML/MIN Glucose (74-106) mg/dL Lactic Acid 2.7 H (0.4-2.0) Calcium (8.4-10.2) mg/dL Total Bilirubin (0.2-1.3) mg/dL AST (14-36) U/L ALT (0-35) U/L Alkaline Phosphatase (38-126) U/L Troponin I (0.000-0.033) ng/mL Serum Total Protein (6.3-8.2) g/dL Albumin (3.5-5.0) g/dL Lipase (23-300) U/L Urine Color Yellow (Yellow) Urine Appearance Cloudy A (Clear) Urine pH 5.5 (4.6-8.0) Ur Specific [place] >=1.030 A (1.005-1.030) Urine Protein Negative (Negative) Urine Glucose (UA) Negative (Negative) mg/dL Urine Ketones Trace A (Negative) Urine Blood Negative (Negative) Urine Nitrite Negative (Negative) Urine Bilirubin Negative (Negative) Urine Urobilinogen 0.2 (0.2) mg/dL Ur Leukocyte Esterase Negative (Negative) U Hyaline Cast (Auto) NONE SEEN (0-2) /LPF Urine Microscopic RBC 0-2 (0-5) /HPF Urine Microscopic WBC 0-2 (0-5) /HPF Ur Epithelial Cells Many A (None Seen) /HPF Urine Bacteria Many A (None Seen) /HPF Urine Yeast (Budding) Few A (None Seen) /HPF Urine Culture Reflexed YES (NO) Urine HCG, Qual (NEGATIVE) - Progress Progress: improved Progress Note: Case discussed with general surgery Dr. Thiago Benson. Patient will be admitted for further evaluation/appendectomy. I spoke to Dr. Benson at 3:39 PM. 12/08/24 15:53 Case discussed with hospitalist Dr. Jt ma admission to observation at 4:02 PM. Patient is a 29-year-old female presents to our ED for evaluation of lower abdominal pain. Patient has observed that she has a hernia that tends to auto reduced. Physical exam reveals exquisite tenderness at McBurney's point. CT abdomen pelvis reveals early appendicitis with periappendiceal stranding. No leukocytosis. Patient has a lactic acid of 2.7. IV fluids administered. Laboratory workup also suggest dehydration. Patient received 3.375 mg of Zosyn. Patient will be admitted for further evaluation and treatment. Plan of care discussed with patient. She agrees to admission at [facility] for further evaluation and treatment. Dr. Santiago independently reviewed the CT abdomen pelvis. I did not identify an appendicitis however radiology feels there is an early appendicitis. Patient initially declined pain medication. However now she is requesting pain medication. Patient states that morphine does not work for her but she is agreeable to Dilaudid. Portions of this note were created with voice recognition technology. There may be grammatical, spelling, punctuation or sound alike errors History obtained from patient and patient's nurse practitioner as she was a referral from [facility]. Differential diagnosis includes appendicitis, colitis, mesenteric adenitis, trauma, hernia Complexity of problem addressed is moderate acute complicated. No critical care time. Complex of data reviewed and analyzed is extensive. Test ordered chest reviewed results analyzed interpreted and correlated clinically with history and physical exam. Risk of complication or risk of morbidity/mortality of patient management is high. Patient requires hospitalization for further evaluation and treatment. Vital stable. Time spent to admit patient is approximately 15 minutes. Plan of care established for shared decision making. No social determinants of health present to impede follow-up. Portions of this note were created with voice recognition technology. There may be grammatical, spelling, punctuation or sound alike errors 12/08/24 16:02 Counseled pt/family regarding: lab results, diagnosis, rad results - Departure Departure Disposition: Observation Clinical Impression: Abdominal pain, Lactic acidosis, Dehydration, Appendicitis Condition: Stable Critical Care Time: No Referrals: DEYANIRA SYED, SOC[employer] WORKER AIDE [Primary Care Provider, UNKNOWN] - Follow up/PCP as directed
[2024-12-08 13:33] LABS: BASOPHIL % 0.8 % (0.1-1.2); Basophil (Absolute #) 0.05 x10^3/uL (0.01-0.08); Eosinophil (Absolute #) 0.25 x10^3/uL (0.04-0.36); Hematocrit 44.0 % (34.1-44.9); Hemoglobin 14.0 g/dL (11.2-15.7); IMMATURE GRAN # 0.03 x10^3u/L (0.001-0.031); IMMATURE GRAN % 0.5 % (0.001-0.429); Lymphocyte (Absolute #) 1.61 x10^3/uL (1.18-3.74); Mean Corpuscular Hemoglobin 29.2 pg (25.6-32.2); Mean Corpuscular Hgb Concent. 31.8 g/dL (32.2-35.5); Monocyte (Absolute #) 0.48 x10^3/uL (0.24-0.86); NUCLEATED RBC # 0.00 x10^3u/L (0.00-0.012); NUCLEATED RBC % 0.0 % (0.00-0.2); Platelet Count 282 x10^3/uL (182-369); Red Blood Count 4.80 x10^6/uL (3.93-5.22); White Blood Count 6.1 x10^3/uL (3.98-10.04)
[2024-12-08 13:51] LABS: Calcium 9.3 mg/dL (8.4-10.2); Carbon Dioxide 26.0 mmol/L (22-30); Creatinine 1 1.01 mg/dL (0.52-1.04); EST GLOMERULAR FILTRATION RATE 76.3 ML/MIN; Glucose 82.0 mg/dL (74-106); Potassium 4.0 mmol/L (3.5-5.1); SGOT/AST 33.0 U/L (14-36); SGPT/ALT 29.0 U/L (0-35); Total Protein 7.7 g/dL (6.3-8.2)
[2024-12-08 14:38] LABS: HCG URINE TEST NEGATIVE (NEGATIVE)
--- NOTE | 2024-12-08 14:53 | XRAY ---
Indication: Pain. Multiple contiguous axial images obtained through the abdomen and pelvis without contrast. Comparison: September 05, 2024 Lung bases remain clear. Heart not enlarged. Noncontrasted stomach and bowel loops appear nonobstructed. Appendix now appears slightly more prominent measuring up to 7-8 mm with minimal periappendiceal stranding. Mild or early appendicitis not completely excluded. Again tiny cul-de-sac fluid presumed physiologic from ruptured/leaking cyst. Previous hepatic hemangioma not seen on this noncontrast exam. No free air. Remaining liver, gallbladder, pancreas, spleen, adrenal glands, kidneys, ureters, bladder, uterus, and aorta are unremarkable for noncontrast exam. Osseous structures intact. Grossly stable intact ventral hernia repair. Impression: 1. Borderline prominent appendix with minimal periappendiceal stranding. Rule out mild or early appendicitis clinically. 2. Again tiny physiologic cul-de-sac fluid. 3. Remaining CT abdomen/pelvis without contrast exam is negative.
[2024-12-08 15:18] LABS: Glucose, Urine Negative (Negative); Protein,Urine Dip Negative (Negative); RBC 0-2 /HPF (0-5); WBC 0-2 /HPF (0-5)
[2024-12-08] MEDS ORDERED: PIPERACILLIN/TAZOBACTAM IV ONE (15:51)
[2024-12-08] MEDS ORDERED: Hydromorphone 1 mg/ml Injection ONE (16:15)
[2024-12-08] MEDS: Hydromorphone 1 mg/ml Injection IV ONE (16:16)
[2024-12-08] MEDS ORDERED: propofoL IV ONE (17:05)
[2024-12-08] MEDS ORDERED: Zofran 4 MG/2 ML VIAL ONE ×2 (17:06→18:08)
[2024-12-08] MEDS ORDERED: SUBLIMAZE 100 MCG/2 ML ONE (17:06)
[2024-12-08] MEDS ORDERED: ROCURONIUM BROMIDE IV ONE (17:06)
[2024-12-08] MEDS ORDERED: Xylocaine-Mpf 2% 5 Ml Vial ONE (17:06)
[2024-12-08] MEDS ORDERED: Lactated Ringers 1,000 ML IV ONE (17:11)
[2024-12-08] MEDS ORDERED: DEXMEDETOMIDINE 80 MCG/20ML-NS IV ONE (17:21)
[2024-12-08] MEDS ORDERED: BRIDION 200MG/2ML IV ONE (17:35)
[2024-12-08] MEDS ORDERED: OFIRMEV 100 ML IV ONE (17:44)
[2024-12-08] MEDS ORDERED: DILAUDID 0.5 MG/0.5 ML SYRINGE IV ONE (18:07)
[2024-12-08] MEDS ORDERED: SUBLIMAZE 100 MCG/2 ML IV ONE (18:07)
[2024-12-08] MEDS ORDERED: Compazine 10 MG/2 ML ONE (18:22)
[2024-12-08] MEDS ORDERED: TYLENOL 325 MG PO PRN ×2 (19:23→20:01)
--- NOTE | 2024-12-08 19:23 | PCM.HP ---
History of Present Illness - Chief Complaint Chief Complaint: Appendicitis History of Present Illness: is a 29 year old female with PMH of asthma, ADHD, depression, anxiety, migraines, and obesity who presented to the ED complaining of nausea, vomiting, and abdominal pain. The patient reports that she initially was experiencing nausea and vomiting with decreased oral intake for the past 1 week. Over the last 2 days she started to experience 4-5 out of 10 pain in the middle lower part of her abdomen and left lower abdomen which she associated with her having a hernia after having a HALLIE flap breast reconstruction initially in April 2023 with 3 subsequent revisions. She went to an outpatient care center prior to coming to the ER and was referred to the ER out of concern for her having possible incarcerated hernia. In the ER, CT of the abdomen pelvis showed findings concerning for appendicitis. Patient was empirically started on Zosyn. She was also noted to have lactic acidosis and was started on IV fluids. Subsequently, lactic acidosis has resolved. Patient currently reports 8 out of 10 abdominal pain after having a laparoscopic appendectomy. Per RN, no reported complications intraoperatively or postoperatively. Patient is a non-smoker, no alcohol use, no recreational drug use She is currently on Vyvanse for ADHD and takes Contrave for weight loss. - Review of Systems Constitutional: No Symptoms Eyes: No Symptoms Ears, Nose, & Throat: No Symptoms Respiratory: No Symptoms Cardiac: No Symptoms Abdominal/Gastrointestinal: Abdominal Pain, Nausea, Vomiting, Appetite Changes Genitourinary Symptoms: No Symptoms Musculoskeletal: No Symptoms Skin: No Symptoms Neurological: No Symptoms Psychological: No Symptoms Endocrine: No Symptoms Hematologic/Lymphatic: No Symptoms Immunological/Allergic: No Symptoms All Other Systems: Reviewed and Negative Medications & Allergies Home Medications: Home Medication List Lisdexamfetamine Dimesylate 70 mg PO DAILY 12/08/24 [History Confirmed 12/08/24] Naltrexone HCl/Bupropion HCl [Contrave ER 8-90 mg Tablet] 1 tablet PO DAILY 12/08/24 [History Confirmed 12/08/24] Allergies/Adverse Reactions: Allergies Allergy/AdvReac Type Severity Reaction Status Date / Time shellfish derived Allergy Intermediate Hives Verified 12/08/24 18:45 - Past Medical History Past Medical History: Yes Neurological History: Migraines ENT History: No Pertinent History Cardiac History: No Pertinent History Respiratory History: Asthma Endocrine Medical History: No Pertinent History Musculoskelatal History: No Pertinent History GI Medical History: No Pertinent History History: No Pertinent History Pyscho-Social History: Anxiety, Attention Deficit Disorder, Depression Reproductive Disorders: No Pertinent History Comment: ANXIETY, DEPRESSION, ADHD - Female History Hx Last Menstrual Period: 05/04/13 Are you now?: No - Past Surgical History Past Surgical History: Yes Neuro Surgical History: No Pertinent History Cardiac History: No Pertinent History Respiratory Surgery: No Pertinent History GI Surgical History: Appendectomy Genitourinary Surgical Hx: No Pertinent History Musculskeletal Surgical Hx: Orthopedic Surgery Female Surgical History: Tubal Ligation, Other Other Surgical History: cyst removed from r wrist. complications from tubal 12/19/21. Double Mastectectomy. Multiple reconstruction sx Significant Family History: no pertinent family hx - Social History Smoking Status: Never smoker Exposure to second hand smoke: No Alcohol: None Drug Use: none - Social Determinants of Health Will the patient participate in the screening: Yes Do you worry about a steady place to live?: No In the past 12 months,have you had to go without utilities?: No Have you or anyone in your house had to go without enough: No Transportation Issues: No Has anyone in your support network made you feel unsafe?: No - Physical Exam Vital Signs: Vital Signs - 24 hr Temp Pulse Resp BP BP Pulse Ox 12/08/24 17:42 97.8 F 80 16 114/73 100 12/08/24 16:58 97.8 F 80 16 114/73 100 12/08/24 16:14 100 12/08/24 16:00 120/81 99 12/08/24 15:30 123/85 100 12/08/24 15:09 139/85 98 12/08/24 14:00 118/81 99 12/08/24 13:50 99 12/08/24 13:42 99 12/08/24 12:33 114/73 12/08/24 12:27 97.9 F 97 H 18 114/73 100 General Appearance: mild distress Neurologic Exam: alert, oriented x 3, cooperative, normal mood/affect Eye Exam: PERRL/EOMI, eyes nml inspection Ears, Nose, Throat Exam: moist mucous membranes Neck Exam: normal inspection, non-tender Respiratory Exam: normal breath sounds Cardiovascular Exam: regular rate/rhythm, normal heart sounds Gastrointestinal/Abdomen Exam: soft, tenderness, other (surgical incision sites noted, no saturation of dressings) Extremity Exam: normal inspection Skin Exam: normal color Results - Labs Lab/Micro Results: Lab Results-Last 24 Hours 12/08/24 12/08/24 12/08/24 Range/Units 12:41 12:41 13:30 WBC 6.1 (3.98-10.04) x10^3/uL RBC 4.80 (3.93-5.22) x10^6/uL Hgb 14.0 (11.2-15.7) g/dL Hct 44.0 (34.1-44.9) % MCV 91.7 (79.4-94.8) fL MCH 29.2 (25.6-32.2) pg MCHC 31.8 L (32.2-35.5) g/dL RDW 12.8 (11.7-14.4) % Plt Count 282 (182-369) x10^3/uL MPV 11.4 (9.4-12.3) fL Gran % 60.3 (34.0-71.1) % Immature Gran % (Auto) 0.5 H (0.001-0.429) % Nucleat RBC Rel Count 0.0 (0.00-0.2) % Eos # (Auto) 0.25 (0.04-0.36) x10^3/uL Immature Gran # (Auto) 0.03 (0.001-0.031) x10^3u/L Absolute Lymphs (auto) 1.61 (1.18-3.74) x10^3/uL Absolute Monos (auto) 0.48 (0.24-0.86) x10^3/uL Absolute Nucleated RBC 0.00 (0.00-0.012) x10^3u/L Lymphocytes % 26.4 (19.3-51.7) % Monocytes % 7.9 (4.7-12.5) % Eosinophils % 4.1 (0.7-5.8) % Basophils % 0.8 (0.1-1.2) % Absolute Granulocytes 3.68 (1.56-6.13) x10^3/uL Basophils # 0.05 (0.01-0.08) x10^3/uL Sodium (135-145) mmol/L Potassium (3.5-5.1) mmol/L Chloride (98-107) mmol/L Carbon Dioxide (22-30) mmol/L Anion Gap (5-15) MEQ/L BUN (7-17) mg/dL Creatinine (0.52-1.04) mg/dL Estimated GFR ML/MIN Glucose (74-106) mg/dL Lactic Acid 2.7 H (0.4-2.0) Calcium (8.4-10.2) mg/dL Total Bilirubin (0.2-1.3) mg/dL AST (14-36) U/L ALT (0-35) U/L Alkaline Phosphatase (38-126) U/L Troponin I (0.000-0.033) ng/mL Serum Total Protein (6.3-8.2) g/dL Albumin (3.5-5.0) g/dL Lipase (23-300) U/L Urine Color Yellow (Yellow) Urine Appearance Cloudy A (Clear) Urine pH 5.5 (4.6-8.0) Ur Specific [place] >=1.030 A (1.005-1.030) Urine Protein Negative (Negative) Urine Glucose (UA) Negative (Negative) mg/dL Urine Ketones Trace A (Negative) Urine Blood Negative (Negative) Urine Nitrite Negative (Negative) Urine Bilirubin Negative (Negative) Urine Urobilinogen 0.2 (0.2) mg/dL Ur Leukocyte Esterase Negative (Negative) U Hyaline Cast (Auto) NONE SEEN (0-2) /LPF Urine Microscopic RBC 0-2 (0-5) /HPF Urine Microscopic WBC 0-2 (0-5) /HPF Ur Epithelial Cells Many A (None Seen) /HPF Urine Bacteria Many A (None Seen) /HPF Urine Yeast (Budding) Few A (None Seen) /HPF Urine Culture Reflexed YES (NO) Urine HCG, Qual (NEGATIVE) 12/08/24 12/08/24 12/08/24 Range/Units 13:30 13:30 14:30 WBC (3.98-10.04) x10^3/uL RBC (3.93-5.22) x10^6/uL Hgb (11.2-15.7) g/dL Hct (34.1-44.9) % MCV (79.4-94.8) fL MCH (25.6-32.2) pg MCHC (32.2-35.5) g/dL RDW (11.7-14.4) % Plt Count (182-369) x10^3/uL MPV (9.4-12.3) fL Gran % (34.0-71.1) % Immature Gran % (Auto) (0.001-0.429) % Nucleat RBC Rel Count (0.00-0.2) % Eos # (Auto) (0.04-0.36) x10^3/uL Immature Gran # (Auto) (0.001-0.031) x10^3u/L Absolute Lymphs (auto) (1.18-3.74) x10^3/uL Absolute Monos (auto) (0.24-0.86) x10^3/uL Absolute Nucleated RBC (0.00-0.012) x10^3u/L Lymphocytes % (19.3-51.7) % Monocytes % (4.7-12.5) % Eosinophils % (0.7-5.8) % Basophils % (0.1-1.2) % Absolute Granulocytes (1.56-6.13) x10^3/uL Basophils # (0.01-0.08) x10^3/uL Sodium 139 (135-145) mmol/L Potassium 4.0 (3.5-5.1) mmol/L Chloride 104 (98-107) mmol/L Carbon Dioxide 26 (22-30) mmol/L Anion Gap 12.5 (5-15) MEQ/L BUN 8 (7-17) mg/dL Creatinine 1.01 (0.52-1.04) mg/dL Estimated GFR 76.3 ML/MIN Glucose 82 (74-106) mg/dL Lactic Acid (0.4-2.0) Calcium 9.3 (8.4-10.2) mg/dL Total Bilirubin 0.20 (0.2-1.3) mg/dL AST 33 (14-36) U/L ALT 29 (0-35) U/L Alkaline Phosphatase 66 (38-126) U/L Troponin I < 0.012 (0.000-0.033) ng/mL Serum Total Protein 7.7 (6.3-8.2) g/dL Albumin 4.5 (3.5-5.0) g/dL Lipase 69 (23-300) U/L Urine Color (Yellow) Urine Appearance (Clear) Urine pH (4.6-8.0) Ur Specific [place] (1.005-1.030) Urine Protein (Negative) Urine Glucose (UA) (Negative) mg/dL Urine Ketones (Negative) Urine Blood (Negative) Urine Nitrite (Negative) Urine Bilirubin (Negative) Urine Urobilinogen (0.2) mg/dL Ur Leukocyte Esterase (Negative) U Hyaline Cast (Auto) (0-2) /LPF Urine Microscopic RBC (0-5) /HPF Urine Microscopic WBC (0-5) /HPF Ur Epithelial Cells (None Seen) /HPF Urine Bacteria (None Seen) /HPF Urine Yeast (Budding) (None Seen) /HPF Urine Culture Reflexed (NO) Urine HCG, Qual NEGATIVE (NEGATIVE) 12/08/24 12/08/24 Range/Units 15:28 16:00 WBC (3.98-10.04) x10^3/uL RBC (3.93-5.22) x10^6/uL Hgb (11.2-15.7) g/dL Hct (34.1-44.9) % MCV (79.4-94.8) fL MCH (25.6-32.2) pg MCHC (32.2-35.5) g/dL RDW (11.7-14.4) % Plt Count (182-369) x10^3/uL MPV (9.4-12.3) fL Gran % (34.0-71.1) % Immature Gran % (Auto) (0.001-0.429) % Nucleat RBC Rel Count (0.00-0.2) % Eos # (Auto) (0.04-0.36) x10^3/uL Immature Gran # (Auto) (0.001-0.031) x10^3u/L Absolute Lymphs (auto) (1.18-3.74) x10^3/uL Absolute Monos (auto) (0.24-0.86) x10^3/uL Absolute Nucleated RBC (0.00-0.012) x10^3u/L Lymphocytes % (19.3-51.7) % Monocytes % (4.7-12.5) % Eosinophils % (0.7-5.8) % Basophils % (0.1-1.2) % Absolute Granulocytes (1.56-6.13) x10^3/uL Basophils # (0.01-0.08) x10^3/uL Sodium (135-145) mmol/L Potassium (3.5-5.1) mmol/L Chloride (98-107) mmol/L Carbon Dioxide (22-30) mmol/L Anion Gap (5-15) MEQ/L BUN (7-17) mg/dL Creatinine (0.52-1.04) mg/dL Estimated GFR ML/MIN Glucose (74-106) mg/dL Lactic Acid 1.0 (0.4-2.0) Calcium (8.4-10.2) mg/dL Total Bilirubin (0.2-1.3) mg/dL AST (14-36) U/L ALT (0-35) U/L Alkaline Phosphatase (38-126) U/L Troponin I < 0.012 (0.000-0.033) ng/mL Serum Total Protein (6.3-8.2) g/dL Albumin (3.5-5.0) g/dL Lipase (23-300) U/L Urine Color (Yellow) Urine Appearance (Clear) Urine pH (4.6-8.0) Ur Specific [place] (1.005-1.030) Urine Protein (Negative) Urine Glucose (UA) (Negative) mg/dL Urine Ketones (Negative) Urine Blood (Negative) Urine Nitrite (Negative) Urine Bilirubin (Negative) Urine Urobilinogen (0.2) mg/dL Ur Leukocyte Esterase (Negative) U Hyaline Cast (Auto) (0-2) /LPF Urine Microscopic RBC (0-5) /HPF Urine Microscopic WBC (0-5) /HPF Ur Epithelial Cells (None Seen) /HPF Urine Bacteria (None Seen) /HPF Urine Yeast (Budding) (None Seen) /HPF Urine Culture Reflexed (NO) Urine HCG, Qual (NEGATIVE) - Radiology Impressions Radiology Exams & Impressions: Radiology Procedures Category Date Time Status ABDOMEN AND PELVIS W/0 CONTRAS [CT] Stat Exams 12/08/24 12:42 Completed Assessment/Plan (1) Appendicitis Current Visit: Yes Status: Acute Qualifiers: Appendicitis type: acute appendicitis Acute appendicitis type: with localized peritonitis Appendicitis gangrene presence: without gangrene Appendicitis perforation presence: without perforation Appendicitis abscess presence: without abscess Qualified Code(s): K35.30 - Acute appendicitis with localized peritonitis, without perforation or gangrene Assessment & Plan: s/p lap appendectomy - POD#0 IV fluids Clear liquid diet, advance as tolerated Pain control oral/IV Appreciate further recommendations from general surgery Code(s): K37 - UNSPECIFIED APPENDICITIS (2) Nausea and vomiting Current Visit: Yes Status: Acute Qualifiers: Vomiting type: unspecified Qualified Code(s): R11.2 - Nausea with vomiting, unspecified Assessment & Plan: Antiemetic PRN Code(s): R11.2 - NAUSEA WITH VOMITING, UNSPECIFIED (3) Lactic acidosis Current Visit: Yes Status: Acute Assessment & Plan: Resolved with IV fluids Code(s): E87.20 - ACIDOSIS, UNSPECIFIED (4) ADHD Current Visit: Yes Status: Chronic Qualifiers: Attention deficit-hyperactivity disorder type: unspecified Qualified Co de(s): F90.9 - Attention-deficit hyperactivity disorder, unspecified type Assessment & Plan: Continue Vyvanse (5) Class 2 obesity Current Visit: Yes Status: Chronic Assessment & Plan: Continue Contrave CLD for now, advance as tolerated Lovenox for DVT PPx Full Code Code(s): E66.812 - OBESITY, CLASS 2 Telemedicine Encounter - Telemedicine Encounter Telemedicine Encounter: "The entirety of this encounter was performed via Telemedicine" This visit was performed using real-time audio and video connection between my location and thepatients locationwith the assistance of a surrogateat the patients location. Written or verbal consent was obtained from the patient/guardian to [facility]. Any patient questions regarding the telemedicine interaction were answered.
[2024-12-08] MEDS: MORPHINE SULFATE 2 MG INJ IV PRN (20:53)
[2024-12-08] MEDS: Zofran 4 MG/2 ML VIAL IV PRN (20:54)
[2024-12-08] MEDS: Dextrose 5% -0.45 NaCl 1000 ML 1,000 ML IV SCH (22:24)
[2024-12-09] MEDS ORDERED: NORCO 5/325 MG ONE (00:01)
[2024-12-09] MEDS ORDERED: PIPERACILLIN/TAZOBACTAM IV ONE ×2 (00:02→04:49)
[2024-12-09 05:39] LABS: BASOPHIL % 0.3 % (0.1-1.2); Basophil (Absolute #) 0.02 x10^3/uL (0.01-0.08); Eosinophil (Absolute #) 0 x10^3/uL (0.04-0.36); Hematocrit 39.8 % (34.1-44.9); Hemoglobin 12.9 g/dL (11.2-15.7); IMMATURE GRAN # 0.03 x10^3u/L (0.001-0.031); IMMATURE GRAN % 0.4 % (0.001-0.429); Lymphocyte (Absolute #) 0.74 x10^3/uL (1.18-3.74); Mean Corpuscular Hemoglobin 28.7 pg (25.6-32.2); Mean Corpuscular Hgb Concent. 32.4 g/dL (32.2-35.5); Monocyte (Absolute #) 0.28 x10^3/uL (0.24-0.86); NUCLEATED RBC # 0.00 x10^3u/L (0.00-0.012); NUCLEATED RBC % 0.0 % (0.00-0.2); Platelet Count 303 x10^3/uL (182-369); Red Blood Count 4.49 x10^6/uL (3.93-5.22); White Blood Count 6.7 x10^3/uL (3.98-10.04)
[2024-12-09 05:50] LABS: Calcium 8.5 mg/dL (8.4-10.2); Carbon Dioxide 24.0 mmol/L (22-30); Creatinine 1 0.89 mg/dL (0.52-1.04); EST GLOMERULAR FILTRATION RATE 88.8 ML/MIN; Glucose 138.0 mg/dL (74-106); Potassium 4.2 mmol/L (3.5-5.1); SGOT/AST 28.0 U/L (14-36); SGPT/ALT 24.0 U/L (0-35); Total Protein 6.6 g/dL (6.3-8.2)
[2024-12-09] MEDS ORDERED: MEDICATION INTERVENTION MC SCH ×2 (07:30)
[2024-12-09 08:01] VITALS: RESP 16
[2024-12-09] MEDS: ENOXAPARIN SODIUM SQ SCH (09:32)
[2024-12-09] MEDS ORDERED: [UNRECOGNIZED DRUG - OTHER] PO SCH (10:00)
[2024-12-09] MEDS ORDERED: LISDEXAMFETAMINE DIMESYLATE 70 MG PO SCH (10:00)
[2024-12-09] MEDS ORDERED: NALTREXONE HCL PO SCH (10:00)
[2024-12-09] MEDS ORDERED: BUPROPION HCL PO SCH (10:00)
[2024-12-09] MEDS: NORCO 5/325 MG PO PRN (11:29)
[2024-12-09 11:35] VITALS: BP 119/56; PULSE 94; TEMP 98.2; O2SAT 98
--- NOTE | 2024-12-09 14:23 | PCM.NOTE ---
Date and Time: 12/09/24 1422 Objective Data Vital Signs: Vital Signs - 24 hr Temp Pulse Resp BP BP Pulse Ox 12/09/24 11:34 98.2 F 94 H 16 119/56 98 12/09/24 08:00 97.9 F 86 16 97/51 97 12/09/24 04:00 97.8 F 82 18 106/55 94 L 12/09/24 00:00 97.9 F 80 16 111/66 95 12/08/24 19:39 97.9 F 70 18 111/63 97 12/08/24 18:28 100 12/08/24 17:42 97.8 F 80 16 114/73 100 12/08/24 16:58 97.8 F 80 16 114/73 100 12/08/24 16:14 100 12/08/24 16:00 120/81 99 12/08/24 15:30 123/85 100 12/08/24 15:09 139/85 98 Pain Assessment - Last Documented Pain Intensity 0 Pain Scale Used 0-10 Pain Scale Intake and Output: Intake & Output 12/07/24 12/08/24 12/09/24 12/10/24 11:59 11:59 11:59 11:59 Intake Total 720 280 Balance 720 280 Weight 94 kg Lab Results: Lab Results-Last 24 Hours 12/08/24 12/08/24 12/08/24 Range/Units 12:41 14:30 15:28 WBC (3.98-10.04) x10^3/uL RBC (3.93-5.22) x10^6/uL Hgb (11.2-15.7) g/dL Hct (34.1-44.9) % MCV (79.4-94.8) fL MCH (25.6-32.2) pg MCHC (32.2-35.5) g/dL RDW (11.7-14.4) % Plt Count (182-369) x10^3/uL MPV (9.4-12.3) fL Gran % (34.0-71.1) % Immature Gran % (Auto) (0.001-0.429) % Nucleat RBC Rel Count (0.00-0.2) % Eos # (Auto) (0.04-0.36) x10^3/uL Immature Gran # (Auto) (0.001-0.031) x10^3u/L Absolute Lymphs (auto) (1.18-3.74) x10^3/uL Absolute Monos (auto) (0.24-0.86) x10^3/uL Absolute Nucleated RBC (0.00-0.012) x10^3u/L Lymphocytes % (19.3-51.7) % Monocytes % (4.7-12.5) % Eosinophils % (0.7-5.8) % Basophils % (0.1-1.2) % Absolute Granulocytes (1.56-6.13) x10^3/uL Basophils # (0.01-0.08) x10^3/uL Sodium (135-145) mmol/L Potassium (3.5-5.1) mmol/L Chloride (98-107) mmol/L Carbon Dioxide (22-30) mmol/L Anion Gap (5-15) MEQ/L BUN (7-17) mg/dL Creatinine (0.52-1.04) mg/dL Estimated GFR ML/MIN Glucose (74-106) mg/dL Lactic Acid 1.0 (0.4-2.0) Calcium (8.4-10.2) mg/dL Total Bilirubin (0.2-1.3) mg/dL AST (14-36) U/L ALT (0-35) U/L Alkaline Phosphatase (38-126) U/L Troponin I (0.000-0.033) ng/mL Serum Total Protein (6.3-8.2) g/dL Albumin (3.5-5.0) g/dL Urine Color Yellow (Yellow) Urine Appearance Cloudy A (Clear) Urine pH 5.5 (4.6-8.0) Ur Specific [place] >=1.030 A (1.005-1.030) Urine Protein Negative (Negative) Urine Glucose (UA) Negative (Negative) mg/dL Urine Ketones Trace A (Negative) Urine Blood Negative (Negative) Urine Nitrite Negative (Negative) Urine Bilirubin Negative (Negative) Urine Urobilinogen 0.2 (0.2) mg/dL Ur Leukocyte Esterase Negative (Negative) U Hyaline Cast (Auto) NONE SEEN (0-2) /LPF Urine Microscopic RBC 0-2 (0-5) /HPF Urine Microscopic WBC 0-2 (0-5) /HPF Ur Epithelial Cells Many A (None Seen) /HPF Urine Bacteria Many A (None Seen) /HPF Urine Yeast (Budding) Few A (None Seen) /HPF Urine Culture Reflexed YES (NO) Urine HCG, Qual NEGATIVE (NEGATIVE) 12/08/24 12/09/24 12/09/24 Range/Units 16:00 05:43 05:43 WBC 6.7 (3.98-10.04) x10^3/uL RBC 4.49 (3.93-5.22) x10^6/uL Hgb 12.9 (11.2-15.7) g/dL Hct 39.8 (34.1-44.9) % MCV 88.6 (79.4-94.8) fL MCH 28.7 (25.6-32.2) pg MCHC 32.4 (32.2-35.5) g/dL RDW 12.6 (11.7-14.4) % Plt Count 303 (182-369) x10^3/uL MPV 10.8 (9.4-12.3) fL Gran % 84.1 H (34.0-71.1) % Immature Gran % (Auto) 0.4 (0.001-0.429) % Nucleat RBC Rel Count 0.0 (0.00-0.2) % Eos # (Auto) 0 L (0.04-0.36) x10^3/uL Immature Gran # (Auto) 0.03 (0.001-0.031) x10^3u/L Absolute Lymphs (auto) 0.74 L (1.18-3.74) x10^3/uL Absolute Monos (auto) 0.28 (0.24-0.86) x10^3/uL Absolute Nucleated RBC 0.00 (0.00-0.012) x10^3u/L Lymphocytes % 11.0 L (19.3-51.7) % Monocytes % 4.2 L (4.7-12.5) % Eosinophils % 0.0 L (0.7-5.8) % Basophils % 0.3 (0.1-1.2) % Absolute Granulocytes 5.67 (1.56-6.13) x10^3/uL Basophils # 0.02 (0.01-0.08) x10^3/uL Sodium 137 (135-145) mmol/L Potassium 4.2 (3.5-5.1) mmol/L Chloride 107 (98-107) mmol/L Carbon Dioxide 24 (22-30) mmol/L Anion Gap 10.7 (5-15) MEQ/L BUN 6 L (7-17) mg/dL Creatinine 0.89 (0.52-1.04) mg/dL Estimated GFR 88.8 ML/MIN Glucose 138 H (74-106) mg/dL Lactic Acid (0.4-2.0) Calcium 8.5 (8.4-10.2) mg/dL Total Bilirubin 0.30 (0.2-1.3) mg/dL AST 28 (14-36) U/L ALT 24 (0-35) U/L Alkaline Phosphatase 66 (38-126) U/L Troponin I < 0.012 (0.000-0.033) ng/mL Serum Total Protein 6.6 (6.3-8.2) g/dL Albumin 3.9 (3.5-5.0) g/dL Urine Color (Yellow) Urine Appearance (Clear) Urine pH (4.6-8.0) Ur Specific [place] (1.005-1.030) Urine Protein (Negative) Urine Glucose (UA) (Negative) mg/dL Urine Ketones (Negative) Urine Blood (Negative) Urine Nitrite (Negative) Urine Bilirubin (Negative) Urine Urobilinogen (0.2) mg/dL Ur Leukocyte Esterase (Negative) U Hyaline Cast (Auto) (0-2) /LPF Urine Microscopic RBC (0-5) /HPF Urine Microscopic WBC (0-5) /HPF Ur Epithelial Cells (None Seen) /HPF Urine Bacteria (None Seen) /HPF Urine Yeast (Budding) (None Seen) /HPF Urine Culture Reflexed (NO) Urine HCG, Qual (NEGATIVE) Radiology Exams: Radiology Procedures Category Date Time Status ABDOMEN AND PELVIS W/0 CONTRAS [CT] Stat Exams 12/08/24 12:42 Completed Medications: Medications Generic Name Dose Route Start Last Admin Trade Name Freq PRN Reason Stop Dose Admin Acetaminophen 650 mg 12/08/24 20:01 Acetaminophen 325 Mg Tablet PO 01/07/25 19:52 Q4H PRN PRN PAIN, FEVER, HEADACHE Hydrocodone Bitart/Acetaminophen 1 tab 12/09/24 11:30 12/09/24 11:29 Hydrocodone/Apap 5/325 1 Tab Tablet PO 12/14/24 11:29 1 tab Q4H PRN PRN Administration PAIN Enoxaparin Sodium 40 mg 12/09/24 10:00 12/09/24 09:32 Enoxaparin Sodium 40 Mg/0.4 Ml Syringe SQ 01/08/25 09:59 40 mg DAILY BASSEM Administration Dextrose/Sodium Chloride 1,000 mls @ 100 mls/hr 12/08/24 20:00 12/09/24 09:32 Dextrose 5% -0.45 Nacl 1000 Ml IV 01/07/25 19:59 100 mls/hr .Q10H BASSEM Administration Piperacillin Sod/Tazobactam 100 mls @ 200 mls/hr 12/09/24 00:00 12/09/24 11:32 Sod 3.375 gm/ Sodium Chloride IV 12/09/24 18:29 200 mls/hr Q6HT BASSEM Administration Miscellaneous Information 1 each 12/09/24 07:30 Medication Intervention 1 Each Each 01/08/25 07:29 .RN TO CHECK BASSEM Miscellaneous Information 1 each 12/09/24 07:30 Medication Intervention 1 Each Each 01/08/25 07:29 .RN TO CHECK BASSEM Morphine Sulfate 2 mg 12/08/24 20:03 12/09/24 00:12 Morphine Sulfate 2 Mg/Ml Inj IV 12/13/24 20:02 2 mg Q2H PRN PRN Administration SEVERE PAIN Ondansetron HCl 4 mg 12/08/24 20:04 12/08/24 20:54 Ondansetron Hcl 4 Mg/2 Ml Vial IV 01/07/25 20:03 4 mg Q6H PRN PRN Administration NAUSEA/VOMITING Discontinued Medications Generic Name Dose Route Start Last Admin Trade Name Freq PRN Reason Stop Dose Admin Acetaminophen 650 mg 12/08/24 19:23 Acetaminophen 325 Mg Tablet PO 01/07/25 19:22 Q6H PRN PRN PAIN, FEVER, HEADACHE Hydrocodone Bitart/Acetaminophen Confirm 12/09/24 00:01 Hydrocodone/Apap 5/325 1 Tab Tablet Administered 12/09/24 00:02 Dose 1 tab .ROUTE .STK-MED ONE Dexamethasone Sodium Phosphate Confirm 12/08/24 17:06 Dexamethasone Sodium Phosphate 4 Mg/Ml Vial Administered 12/08/24 17:07 Dose 4 mg .ROUTE .STK-MED ONE Dexmedetomidine/Sodium Chloride Confirm 12/08/24 17:21 Dexmedetomidine In 0.9 % Nacl 80 Mcg/20 Ml Vial Administered 12/08/24 17:22 Dose 80 mcg IV .STK-MED ONE Fentanyl Citrate Confirm 12/08/24 17:06 Fentanyl Citrate 100 Mcg/2 Ml* Vial Administered 12/08/24 17:07 Dose 100 mcg .ROUTE .STK-MED ONE Hydromorphone HCl 0.5 mg 12/08/24 16:08 12/08/24 16:16 Hydromorphone 1 Mg/1ml Inj IV 12/08/24 16:09 0.5 mg STAT ONE Administration Hydromorphone HCl Confirm 12/08/24 16:15 Hydromorphone 1 Mg/1ml Inj Administered 12/08/24 16:16 Dose 1 mg .ROUTE .STK-MED ONE Sodium Chloride 1,000 mls @ 100 mls/hr 12/08/24 12:45 12/08/24 12:56 Sodium Chloride 0.9% 1000 Ml IV 01/07/25 12:44 100 mls/hr .Q10H BASSEM Administration Piperacillin Sod/Tazobactam 100 mls @ 200 mls/hr 12/08/24 15:40 12/08/24 16:00 Sod 3.375 gm/ Sodium Chloride IV 12/08/24 16:09 200 mls/hr STAT STA 200 mls/hr Administration Sodium Chloride Confirm 12/08/24 15:51 Sodium Chloride 0.9% Administered 12/08/24 15:52 Dose 100 mls @ ud .ROUTE .STK-MED ONE Lactated Ringer's Confirm 12/08/24 17:11 Lactated Ringers Administered 12/08/24 17:12 Dose 1,000 mls @ ud IV .STK-MED ONE Acetaminophen Confirm 12/08/24 17:44 Ofirmev Administered 12/08/24 17:45 Dose 100 mls @ ud IV .STK-MED ONE Sodium Chloride 1,000 mls @ 100 mls/hr 12/08/24 19:30 12/09/24 09:14 Sodium Chloride 0.9% 1000 Ml IV 01/07/25 19:29 Not Given .Q10H BASSEM Sodium Chloride Confirm 12/09/24 00:02 Sodium Chloride 0.9% Administered 12/09/24 00:03 Dose 100 mls @ ud .ROUTE .STK-MED ONE Sodium Chloride Confirm 12/09/24 04:49 Sodium Chloride 0.9% Administered 12/09/24 04:50 Dose 100 mls @ ud .ROUTE .STK-MED ONE Lidocaine HCl Confirm 12/08/24 17:06 Lidocaine - Mpf 2% 5 Ml Vial Administered 12/08/24 17:07 Dose 5 ml .ROUTE .STK-MED ONE Ondansetron HCl Confirm 12/08/24 17:06 Ondansetron Hcl 4 Mg/2 Ml Vial Administered 12/08/24 17:07 Dose 4 mg .ROUTE .STK-MED ONE Ondansetron HCl Confirm 12/08/24 18:08 Ondansetron Hcl 4 Mg/2 Ml Vial Administered 12/08/24 18:09 Dose 4 mg .ROUTE .STK-MED ONE Piperacillin Sod/Tazobactam Sod Confirm 12/08/24 15:51 Piperacillin/Tazobactam Sodium 3.375 Gm Vial Administered 12/08/24 15:52 Dose 3.375 gm IV .STK-MED ONE Piperacillin Sod/Tazobactam Sod Confirm 12/09/24 00:02 Piperacillin/Tazobactam Sodium 3.375 Gm Vial Administered 12/09/24 00:03 Dose 3.375 gm IV .STK-MED ONE Piperacillin Sod/Tazobactam Sod Confirm 12/09/24 04:49 Piperacillin/Tazobactam Sodium 3.375 Gm Vial Administered 12/09/24 04:50 Dose 3.375 gm IV .STK-MED ONE Prochlorperazine Edisylate Confirm 12/08/24 18:22 Prochlorperazine Edisylate 10 Mg/2 Ml Vial Administered 12/08/24 18:23 Dose 10 mg .ROUTE .STK-MED ONE Propofol Confirm 12/08/24 17:05 Propofol 200 Mg/20 Ml Vial Administered 12/08/24 17:06 Dose 200 mg IV .STK-MED ONE Rocuronium [place] Confirm 12/08/24 17:06 Rocuronium [place] 50 Mg/5 Ml Vial Administered 12/08/24 17:07 Dose 50 mg IV .STK-MED ONE Sugammadex Sodium Confirm 12/08/24 17:35 Sugammadex Sodium 200 Mg/2 Ml Vial Administered 12/08/24 17:36 Dose 200 mg IV .STK-MED ONE Assessment/Plan (1) Appendicitis Current Visit: Yes Status: Acute Qualifiers: Appendicitis type: acute appendicitis Acute appendicitis type: with localized peritonitis Appendicitis gangrene presence: without gangrene Appendicitis perforation presence: without perforation Appendicitis abscess presence: without abscess Qualified Code(s): K35.30 - Acute appendicitis with localized peritonitis, without perforation or gangrene Assessment & Plan: S; no acute issues. pain mild. no n/v. you reg diet. o nad nonlabroe drepss nd, soft, attp c/d/i. a/p: dc to home. norco sent she is on naltrexone but 5 day norco prescribed. Code(s): K37 - UNSPECIFIED APPENDICITIS
--- NOTE | 2024-12-09 15:03 | PCM.DS ---
Discharge Summary Date of Admission: 12/08/24 18:27 Date of Discharge: 12/09/24 Admitting Physician: BJORN GRULLON MD Primary Care Provider: DEYANIRA SYED NP Allergies Allergies shellfish derived Allergy (Intermediate, Verified 12/08/24 18:45) [facility] Summary - Hospital Course Hospital Course: Ms. Buchanan is a 29-year-old female admitted with acute appendicitis. She underwent laparoscopic appendectomy without intraoperative or postoperative complications. Postoperatively, she recovered well, is ambulating independently, tolerating diet, and her pain is controlled on oral medications. The surgical team has evaluated her and cleared her for discharge. Pain medications and discharge instructions were called to her pharmacy. She was instructed on wound care and activity restrictions, and advised to return to the emergency department for fever, worsening abdominal pain, drainage, or inability to tolerate oral intake. She will follow up with surgery in 12 weeks. Discharge Note New Diagnosis: Acute appendicitis New Medications: [place] Follow Up: surgery/pcp I spent 35 minutes [id number] with the patient on the day of discharge performing discharge exam, discussing hospital stay and discharge instructions with patient and caregivers, preparation of discharge records, prescriptions & referral forms and addressing any questions/concerns the patient had as documented above. - Vitals & Intake/Output Vital Signs: Vital Signs Temperature 98.2 F 12/09/24 11:34 Pulse Rate 94 H 12/09/24 11:34 Respiratory Rate 16 12/09/24 11:34 Blood Pressure 119/56 12/09/24 11:34 O2 Sat by Pulse Oximetry 98 12/09/24 11:34 Intake & Output: Intake & Output 12/07/24 12/08/24 12/09/24 12/10/24 11:59 11:59 11:59 11:59 Intake Total 720 280 Balance 720 280 Weight 94 kg - Lab Result Diagrams: 12/09/24 05:43 12/09/24 05:43 Lab Results-Last 24 Hrs: Lab Results-Last 24 Hours 12/08/24 12/08/24 12/08/24 Range/Units 12:41 15:28 16:00 WBC (3.98-10.04) x10^3/uL RBC (3.93-5.22) x10^6/uL Hgb (11.2-15.7) g/dL Hct (34.1-44.9) % MCV (79.4-94.8) fL MCH (25.6-32.2) pg MCHC (32.2-35.5) g/dL RDW (11.7-14.4) % Plt Count (182-369) x10^3/uL MPV (9.4-12.3) fL Gran % (34.0-71.1) % Immature Gran % (Auto) (0.001-0.429) % Nucleat RBC Rel Count (0.00-0.2) % Eos # (Auto) (0.04-0.36) x10^3/uL Immature Gran # (Auto) (0.001-0.031) x10^3u/L Absolute Lymphs (auto) (1.18-3.74) x10^3/uL Absolute Monos (auto) (0.24-0.86) x10^3/uL Absolute Nucleated RBC (0.00-0.012) x10^3u/L Lymphocytes % (19.3-51.7) % Monocytes % (4.7-12.5) % Eosinophils % (0.7-5.8) % Basophils % (0.1-1.2) % Absolute Granulocytes (1.56-6.13) x10^3/uL Basophils # (0.01-0.08) x10^3/uL Sodium (135-145) mmol/L Potassium (3.5-5.1) mmol/L Chloride (98-107) mmol/L Carbon Dioxide (22-30) mmol/L Anion Gap (5-15) MEQ/L BUN (7-17) mg/dL Creatinine (0.52-1.04) mg/dL Estimated GFR ML/MIN Glucose (74-106) mg/dL Lactic Acid 1.0 (0.4-2.0) Calcium (8.4-10.2) mg/dL Total Bilirubin (0.2-1.3) mg/dL AST (14-36) U/L ALT (0-35) U/L Alkaline Phosphatase (38-126) U/L Troponin I < 0.012 (0.000-0.033) ng/mL Serum Total Protein (6.3-8.2) g/dL Albumin (3.5-5.0) g/dL Urine Color Yellow (Yellow) Urine Appearance Cloudy A (Clear) Urine pH 5.5 (4.6-8.0) Ur Specific Broad Top >=1.030 A (1.005-1.030) Urine Protein Negative (Negative) Urine Glucose (UA) Negative (Negative) mg/dL Urine Ketones Trace A (Negative) Urine Blood Negative (Negative) Urine Nitrite Negative (Negative) Urine Bilirubin Negative (Negative) Urine Urobilinogen 0.2 (0.2) mg/dL Ur Leukocyte Esterase Negative (Negative) U Hyaline Cast (Auto) NONE SEEN (0-2) /LPF Urine Microscopic RBC 0-2 (0-5) /HPF Urine Microscopic WBC 0-2 (0-5) /HPF Ur Epithelial Cells Many A (None Seen) /HPF Urine Bacteria Many A (None Seen) /HPF Urine Yeast (Budding) Few A (None Seen) /HPF Urine Culture Reflexed YES (NO) 12/09/24 12/09/24 Range/Units 05:43 05:43 WBC 6.7 (3.98-10.04) x10^3/uL RBC 4.49 (3.93-5.22) x10^6/uL Hgb 12.9 (11.2-15.7) g/dL Hct 39.8 (34.1-44.9) % MCV 88.6 (79.4-94.8) fL MCH 28.7 (25.6-32.2) pg MCHC 32.4 (32.2-35.5) g/dL RDW 12.6 (11.7-14.4) % Plt Count 303 (182-369) x10^3/uL MPV 10.8 (9.4-12.3) fL Gran % 84.1 H (34.0-71.1) % Immature Gran % (Auto) 0.4 (0.001-0.429) % Nucleat RBC Rel Count 0.0 (0.00-0.2) % Eos # (Auto) 0 L (0.04-0.36) x10^3/uL Immature Gran # (Auto) 0.03 (0.001-0.031) x10^3u/L Absolute Lymphs (auto) 0.74 L (1.18-3.74) x10^3/uL Absolute Monos (auto) 0.28 (0.24-0.86) x10^3/uL Absolute Nucleated RBC 0.00 (0.00-0.012) x10^3u/L Lymphocytes % 11.0 L (19.3-51.7) % Monocytes % 4.2 L (4.7-12.5) % Eosinophils % 0.0 L (0.7-5.8) % Basophils % 0.3 (0.1-1.2) % Absolute Granulocytes 5.67 (1.56-6.13) x10^3/uL Basophils # 0.02 (0.01-0.08) x10^3/uL Sodium 137 (135-145) mmol/L Potassium 4.2 (3.5-5.1) mmol/L Chloride 107 (98-107) mmol/L Carbon Dioxide 24 (22-30) mmol/L Anion Gap 10.7 (5-15) MEQ/L BUN 6 L (7-17) mg/dL Creatinine 0.89 (0.52-1.04) mg/dL Estimated GFR 88.8 ML/MIN Glucose 138 H (74-106) mg/dL Lactic Acid (0.4-2.0) Calcium 8.5 (8.4-10.2) mg/dL Total Bilirubin 0.30 (0.2-1.3) mg/dL AST 28 (14-36) U/L ALT 24 (0-35) U/L Alkaline Phosphatase 66 (38-126) U/L Troponin I (0.000-0.033) ng/mL Serum Total Protein 6.6 (6.3-8.2) g/dL Albumin 3.9 (3.5-5.0) g/dL Urine Color (Yellow) Urine Appearance (Clear) Urine pH (4.6-8.0) Ur Specific Broad Top (1.005-1.030) Urine Protein (Negative) Urine Glucose (UA) (Negative) mg/dL Urine Ketones (Negative) Urine Blood (Negative) Urine Nitrite (Negative) Urine Bilirubin (Negative) Urine Urobilinogen (0.2) mg/dL Ur Leukocyte Esterase (Negative) U Hyaline Cast (Auto) (0-2) /LPF Urine Microscopic RBC (0-5) /HPF Urine Microscopic WBC (0-5) /HPF Ur Epithelial Cells (None Seen) /HPF Urine Bacteria (None Seen) /HPF Urine Yeast (Budding) (None Seen) /HPF Urine Culture Reflexed (NO) - Radiology Exams Ordered Rad Exams-Entire Visit: Radiology Procedures Category Date Time Status ABDOMEN AND PELVIS W/0 CONTRAS [CT] Stat Exams 12/08/24 12:42 Completed Discharge Exam General Appearance: no apparent distress Neurologic Exam: alert, oriented x 3, cooperative Eye Exam: PERRL Ears, Nose, Throat Exam: normal ENT inspection Neck Exam: normal inspection Respiratory Exam: normal breath sounds, lungs clear Cardiovascular Exam: regular rate/rhythm, normal heart sounds Gastrointestinal/Abdomen Exam: soft, normal bowel sounds Pelvic Exam: deferred Rectal Exam: deferred Back Exam: normal inspection Extremity Exam: normal inspection Skin Exam: other (3 puncture surgical sites with gauze and tegaderm CDI) Final Diagnosis/Problem List - Final Discharge Diagnosis/Problem (1) Appendicitis Current Visit: Yes Status: Acute Assessment & Plan: Appendicitis confirmed on imaging, treated surgically without complications. Pain controlled on oral analgesics; prescriptions provided. Encourage ambulation and progressive activity as tolerated. Avoid heavy lifting for 24 weeks. Wound care instructions provided; keep incisions clean and dry. Follow up with surgery in 12 weeks. Return to ED if fever, worsening pain, persistent vomiting, or wound drainage develops. Code(s): K37 - UNSPECIFIED APPENDICITIS (2) Depression Current Visit: Yes Status: Acute Assessment & Plan: Stable during admission. Continue home regimen. Follow with outpatient mental health provider as scheduled. Code(s): F32.A - DEPRESSION, UNSPECIFIED (3) Lactic acidosis Current Visit: Yes Status: Acute Assessment & Plan: Attributed to dehydration and infection. Corrected with IV fluids during admission. No further intervention required at discharge. Code(s): E87.20 - ACIDOSIS, UNSPECIFIED (4) ADHD Current Visit: Yes Status: Chronic Assessment & Plan: Continue home Vyvanse. Outpatient follow-up with prescribing provider. - Discharge Discharge Date: 12/09/24 Disposition: Home, Self-Care Condition: Stable Prescriptions: New Hydrocodone/Acetaminophen [Hydrocodone-Acetamin 5-325 mg] 1 tab PO Q6HPRN PRN 7 Days #20 tablet MDD 4 PRN Reason: Pain Continue Lisdexamfetamine Dimesylate 70 mg PO DAILY Naltrexone HCl/Bupropion HCl [Contrave ER 8-90 mg Tablet] 1 tablet PO DAILY Instructions: Hydrocodone and Acetaminophen, Appendectomy - Discharge instructions Additional Instructions: No lifting for 1 week (nothing heavier than one gallon of milk) Shower as needed- No tub baths until seen for follow up Remove dressing tomorrow 12/10/24 Leave steri-strips in place and allow them to fall off on there own or until seen in the office. Follow up with: DEYANIRA SYED NP [Primary Care Provider, UNKNOWN] - 12/16/24 10:00 am MAYRA SOMMER [ACTIVE STAFF, GENERAL SURGERY] - 12/24/24 11:40 am Referral Note: AT [place] [facility] Forms: Discharge Instructions
--- NOTE | 2024-12-10 12:31 | OP ---
SURGERY DATE/TIME: 12/08/2024 [id number] PREOPERATIVE DIAGNOSIS: Acute appendicitis. POSTOPERATIVE DIAGNOSIS: Acute appendicitis. PROCEDURE: Laparoscopic appendectomy. SURGEON: Monroe Benson MD ANESTHESIA: General endotracheal tube. COMPLICATIONS: None. CONDITION: Stable. INDICATIONS: Patient requiring appendectomy. DESCRIPTION OF PROCEDURE AND FINDINGS: She was taken to surgery. General anesthetic. Routine prep and drape. Veress needle inserted in right upper quadrant. Insufflated to pressure of 14. A 5 Visiport. The midline and the rectus area was avoided. She had a previous tram flap. She did have a hernia down the lower abdomen and she did have a diastasis in the lower mid abdomen. A 5 port was initially brought in to the left. The appendix was visualized. The 5 exchanged to a 12 under direct visualization and a 5 placed above this. The base was A-B stapled, the mesoappendix A-B stapled, and a small residual portion stapled. The field was totally dry. Placed in the condom bag and removed. Hole closure device 12 port with 0 Vicryl. This approximated well. The field was dry. CO2 exsufflated. Skin closed with 4-0 Vicryl and Steri-Strips. Patient tolerated the procedure satisfactorily.
== END 2024-12-09 14:52 | disposition home or self-care (01) ==
LOC: ED 12:17 → MED SURG 18:27
PROVIDERS: ADMIT Internal Medicine; ATTEND Internal Medicine
DX: K35.80 Unspecified acute appendicitis (principal); F32.A Depression, unspecified; E87.20 Acidosis, unspecified; F90.9 Attention-deficit hyperactivity disorder, unspecified type; B37.9 Candidiasis, unspecified; R11.2 Nausea with vomiting, unspecified; E66.812 Obesity, class 2; Z79.899 Other long term (current) drug therapy